=== PATIENT | female | born 1940 | race Caucasian/White ===

== ENCOUNTER 2016-05-30 08:16 | Emergency (ER) | payer MEDICARE ==
[2016-05-30] MEDS ORDERED: methylPREDNISolone SOD SUCC* 125 MG 2 ML VIAL IV ONE (08:43)
[2016-05-30] MEDS ORDERED: NS 0.9% 1000 ML* 1,000 ML IV ONE (08:43)
[2016-05-30] MEDS ORDERED: Famotidine IV* 10 MG/ML 2 ML (20 mg) IV SLOW PU ONE (08:43)
[2016-05-30 12:07] VITALS: BP 116/60
[2016-05-30 12:12] LABS: Hematocrit 37 % (35-47); Hemoglobin 12.4 g/dl (12.0-16.0); Mean Corpuscular HGB Conc 34 g/dl (31-36); Mean Corpuscular Hemoglobin 31 pg (27-31); Mean Corpuscular Volume 91 fL (80-97); Mean Platelet Volume 9 um3 (7.4-10.4); Red Blood Count 4.06 10^6/ul (4.0-5.4); Red Cell Distribution Width 14 % (10.5-15); White Blood Count 8.4 10^3/ul (3.5-10.8)
[2016-05-30 12:23] LABS: Albumin 4.1 g/dL (3.2-5.2); BUN/Creatinine Ratio 22.8 (8-20); C Reactive Protein 7.32 mg/L (< 5.00); Calcium 8.9 mg/dL (8.6-10.3); EGFR African American 91.5 (>60); EGFR Non-African American 71.1 (>60); Globulin 3.2 g/dL (2-4); Potassium 3.8 mmol/L (3.5-5.0); Total Protein 7.3 g/dL (6.4-8.9)
--- NOTE | 2016-05-31 01:46 | CONS ---
CONSULTATION REPORT: DATE OF CONSULT: 05/30/16 - EMERGENCY DEPT REQUESTING PHYSICIAN FOR CONSULTATION: Jose Tenorio MD ATTENDING PHYSICIAN WHILE IN THE HOSPITAL: Renata Mcclure MD (report dictated by Julius Acuna NP). CHIEF COMPLAINT: Red hands and red face rash. HISTORY OF PRESENT ILLNESS: Ms. Mota is a 76-year-old female patient who carries a history of dementia, asthma, hyperlipidemia, MRSA, history of CHF related to atrial fibrillation with RVR, and a history of AFib. She comes into the ER today, stating that the patient remembers getting up, going to get her medications, and was noted by [facility] staff that she had redness to her face and she had redness to both of her extremities. The patient denied having any difficulty with breathing. There was no reports of wheeze. They were concerned for an allergic reaction and they sent the patient to the hospital. The daughter said that she has had in the past reactions like this, but she never had redness to her face. She has had redness to both her hands and her forearms at times that come and go, and it usually goes away on its own in a couple of days. To their knowledge, there has been no recent change in medications, no changes in detergents. The patient does state that she has no sores in her mouth. She denies having any itching. There has been no blistering and there is no other location of the rashes that she is aware of. The patient states that she was concerned and [facility] was concerned, so they sent her into the hospital to be evaluated. She denies having any fever. There has been no recent illness. No associated vomiting or diarrhea. There has been no dysuria. No loss of consciousness. No frequency. No seizures. Otherwise, the patient feels well. The daughter did note, though, on their way over here, the patient was confused more than her baseline and that was concerning to the daughter as well. She was evaluated by Dr. Tenorio. There was concern for possible reaction and we were asked to evaluate in consult. PAST MEDICAL HISTORY: Significant for: 1. Dementia. 2. Hypertension. 3. Hyperlipidemia. 4. Asthma. 5. MRSA. 6. AFib. 7. CHF. PAST SURGICAL HISTORY: She has had: 1. Hysterectomy. 2. Appendectomy. HOME MEDICATIONS: Include: 1. Pepto-Bismol 30 cc p.o. q.i.d. as needed. 2. Tessalon 100 mg p.o. t.i.d. as needed. 3. ProAir 2 puffs inhaled every 4 hours as needed. 4. Ventolin 2.5 mg inhaled every 4 hours. 5. Warfarin 2 mg p.o. daily. 6. Imodium 2 mg daily. 7. Lipitor 40 mg p.o. at bedtime. 8. Omeprazole 20 mg p.o. daily. 9. Toprol 12.5 mg p.o. daily. 10. Cozaar 25 mg daily. 11. Potassium 40 mEq p.o. daily. 12. Lasix 20 mg daily. 13. Zyrtec 10 mg daily. 14. Multivitamin 1 tablet daily. 15. Amiodarone 100 mg p.o. daily. 16. Probiotic 4 mg daily. ALLERGIES TO MEDICATIONS: Include no known drug allergies. FAMILY HISTORY: Mother's history was reviewed and noncontributory. Father had a history of [place]. SOCIAL HISTORY: She is a former smoker. She smoked a pack a day. She quit over 30 years ago. She used to be an alcoholic, but she has not drank in several years. She lives at [facility]. Surrogate decision maker is Alfa. REVIEW OF SYSTEMS: There is no documented fever. She denies having any significant weight change. There was no double vision. There was no ear discharge. She denied having any rhinorrhea. No sore throat. No thyroid enlargement. Denied having any chest pain. There was no orthopnea, no nocturnal dyspnea. There is no abdominal pain. No nausea, no vomiting. No dysuria, no frequency. No loss of consciousness. No pruritus and no skin ulcerations. Review of 14 systems completed, all others negative. PHYSICAL EXAM: Reveals vital signs, blood pressure 116/60 with a pulse of 59, respirations 16, O2 sat of 100%, temperature 98.7. General: At this time, Ms. Mota is a 76-year-old female patient. She is sitting in the ER stretcher. She does not appear to be in any acute distress. HEENT: Head atraumatic. Eyes : Sclerae anicteric, not pale. Neck: Supple. Throat: Oral mucosa appears to be dry. No oropharyngeal erythema. There were no open sores in the mouth. Heart: Sounds S1 and S2. Regular rate and rhythm. No murmurs, rubs, or gallops. Lungs: Clear to auscultation. No wheezes, rales, or rhonchi. No stridor. Abdomen: Soft, flat, nontender. Bowel sounds present. Extremities: Pulses 2+ throughout, she is able to move all 4 extremities with 5/5 strength. Neurologically, the patient is awake and is alert. She is oriented to self, confused to time. No gross focal deficits. The skin is intact. DIAGNOSTIC DATA: Labs today revealed WBC of 8.4, RBC 4.06, hemoglobin 12.4, hematocrit 37, platelet count 206. Sodium 139, potassium of 3.8, chloride of 107, bicarb 25, BUN 18, creatinine 0.79, glucose 139, lactic 1.1, calcium 8.9, total bili of 1, AST 24, ALT 18, alk phos 101. Troponin is 0. CRP is 7.32, albumin of 4.1. Old medical records were reviewed. ASSESSMENT AND PLAN: Ms. Mota is a 76-year-old female patient coming into the ER today with complaints of rash to her upper extremities, in addition to this, to her face. We were asked to evaluate and consult. Recommendations at this point are: 1. Rash. Again, she is not having any itching. There is no blistering. The rash is blanchable and she has no involvement of the mucosa and no involvement of her eyes, and there has been no recent medications and again there is no sloughing of the skin. She had no respiratory symptoms. I did discuss with the patient and her family the options would be to admit her and observe her overnight here in the hospital or possibly send her home, and the family was reluctant to keep her in the hospital because the last time she was here, she had significant changes in her mentation and she required a long hospitalization , so the family was reluctant to admit her. I did discuss the option of sending her back to [facility], where she could be observed there and I would also recommend putting her on a burst of steroids just for another 3 days, putting her on Pepcid and p.r.n. Benadryl and having her follow with her primary. She said she has had this issue before, but the rash to her face is new and I instructed the family should she have any worsening of her symptoms, chest pain, shortness of breath, cough, difficulty with breathing, she should come back to the ER immediately. I discussed with my attending, Dr. Mcclure, and Dr. Tenorio; they are in agreement. They will send her home with outpatient trial. If she fails this, then she should come back immediately for further evaluation. 2. Dementia. Again, continue with supportive care. 3. Hypertension. Continue meds as prescribed. 4. Hyperlipidemia. Continue meds as prescribed. 5. History of AFib. Continue her current medical regimen. 6. Congestive heart failure. Continue her meds. 7. Asthma. Continue p.r.n. ProAir. 8. Disposition. Again, the patient will be discharged back to [facility]. TIME SPENT: On the consult was approximately 60 minutes; greater than half the time was spent [id number] with the patient obtaining my history and physical, the other half the time spent going over the plan of care with the patient and implementing the plan of care. I did discuss the plan of care with my attending , Dr. Mcclure. She is in agreement. JULIUS ACUNA NP CC: Millie Martinez NP* [id number]/[facility] [place] #: [id number] MTDD
--- NOTE | 2016-05-31 21:09 | ED ---
Holger Mckenzie Adam, scribed for Tae Tenorio MD on 05/30/16 at 0847 . Allergic Reaction/Systemic - HPI Summary HPI Summary: Pt is a 76 year old female presenting with an apparent allergic reaction. She states that she woke up in the middle of the night with swelling of her hands and face. There is redness around the swollen areas and she reports mild itchiness around the time of onset. She also states that she was having some difficulty breathing earlier this morning. She denies difficulty swallowing. Pt denies taking any medicine for the swelling but states that EMS gave her something. Pt's daughter states that the pt is presenting with significantly altered mental status compared to her baseline. - History of Current Complaint Time Seen by Provider: 05/30/16 08:21 Hx Obtained From: Patient Onset/Duration: Sudden Onset, Started hours ago, Still Present Timing: Constant Severity Initially: Moderate Severity Currently: Mild Location: Discrete @ - Hands and face Character: Swelling, Pruritus Aggravating Factor(s): Nothing Alleviating Factor(s): Nothing Associated Signs And Symptoms: Positive: Difficulty Breathing - Allergies/Home Medications Allergies/Adverse Reactions: Allergies Allergy/AdvReac Type Severity Reaction Status Date / Time No Known Allergies Allergy Verified 01/12/15 12:46 Home Medications: Home Medications Amiodarone TAB* [Cordarone TAB*] 100 mg PO DAILY 05/30/16 [History Confirmed 12/06] Atorvastatin* [Lipitor*] 40 mg PO BEDTIME 05/30/16 [History Confirmed 05/30/16] Furosemide TAB* [Lasix TAB*] 20 mg PO DAILY 05/30/16 [History Confirmed 05/30/16 ] Loperamide CAP* [Imodium CAP*] 2 mg PO Q4H PRN 05/30/16 [History Confirmed 05/30] Losartan TAB* [Cozaar TAB*] 25 mg PO DAILY 05/30/16 [History Confirmed 05/30/16] Metoprolol Succinate XL TAB* [Toprol XL TAB*] 12.5 mg PO DAILY 05/30/16 [ History Confirmed 05/30/16] Multivitamins/Minerals TAB* [Theragran/minerals TAB*] 1 tab PO DAILY 05/30/16 [ History Confirmed 05/30/16] Omeprazole CAP* [Prilosec CAP* 20 MG] 20 mg PO DAILY 05/30/16 [History Confirmed 05/30/16] Potassium Chloride Microencaps [Klor-Con M20] 40 meq PO DAILY 05/30/16 [History Confirmed 05/30/16] Probiotic Product [Align] 4 mg PO DAILY 05/30/16 [History Confirmed 05/30/16] Warfarin TAB(*) [Coumadin TAB(*)] 2 mg PO QPM 05/30/16 [History Confirmed ] PMH/Surg Hx/FS Hx/Imm Hx Endocrine/Hematology History: Denies: Hx Diabetes, Hx Thyroid Disease Cardiovascular History: Reports: Hx Hypertension Denies: Hx Congestive Heart Failure Respiratory History: Denies: Hx Asthma, Hx Chronic Obstructive Pulmonary Disease (COPD) GI History: Denies: Hx Ulcer History: Denies: Hx Dialysis, Hx Renal Disease Sensory History: Reports: Hx Contacts or Glasses Opthamlomology History: Reports: Hx Contacts or Glasses Neurological History: Reports: Hx Dementia, Other Neuro Impairments/Disorders - Alzheimer's - Cancer History Hx Chemotherapy: No Hx Radiation Therapy: No - Surgical History Surgery Procedure, Year, and Place: appy, hysterectomy Infectious Disease History: Denies: Hx Hepatitis, Hx Human Immunodeficiency Virus (HIV) - Family History Known Family History: Positive: Other - Negative breast cancer - Social History Occupation: Retired Lives: Alone Alcohol Use: None Hx Substance Use: No Substance Use Type: Reports: None Hx Tobacco Use: Yes Smoking Status (MU): Former Smoker Review of Systems Negative: Fever Positive: Edema - Hands and face Positive: Other - Redness on hands and face All Other Systems Reviewed And Are Negative: Yes Physical Exam Triage Information Reviewed: Yes Vital Signs On Initial Exam: Initial Vitals Temp Pulse Resp BP Pulse Ox 98.7 F 55 18 121/70 97 05/30/16 09:00 05/30/16 09:00 05/30/16 09:00 05/30/16 09:00 05/30/16 09:00 Vital Signs Reviewed: Yes Appearance: Positive: Well-Appearing, No Pain Distress Skin: Positive: Other - Swelling and erythema of hands and face Head/Face: Positive: Other - Facial swelling and redness Eyes: Positive: Normal ENT: Positive: Normal ENT inspection Neck: Positive: Supple, Nontender Respiratory/Lung Sounds: Positive: Clear to Auscultation, Breath Sounds Present Cardiovascular: Positive: RRR Abdomen Description: Positive: Nontender, Soft Bowel Sounds: Positive: Present Musculoskeletal: Positive: Normal Neurological: Positive: Normal Psychiatric: Positive: Affect/Mood Appropriate Diagnostics - Vital Signs Vital Signs Temp Pulse Resp BP Pulse Ox 05/30/16 12:07 59 16 116/60 100 05/30/16 09:47 54 18 125/52 95 05/30/16 09:28 98.7 F 55 18 121/70 97 05/30/16 09:00 98.7 F 55 18 121/70 97 - Laboratory Lab Results: Lab Results 05/30/16 05/30/16 05/30/16 Range/Units 11:55 11:55 11:55 WBC 8.4 (3.5-10.8) 10^3/ul RBC 4.06 (4.0-5.4) 10^6/ul Hgb 12.4 (12.0-16.0) g/dl Hct 37 (35-47) % MCV 91 (80-97) fL MCH 31 (27-31) pg MCHC 34 (31-36) g/dl RDW 14 (10.5-15) % Plt Count 206 (150-450) 10^3/ul MPV 9 (7.4-10.4) um3 Neut % (Auto) 92.7 H (38-83) % Lymph % (Auto) 5.4 L (25-47) % [place] % (Auto) 1.2 (1-9) % Eos % (Auto) 0.3 (0-6) % Baso % (Auto) 0.4 (0-2) % Absolute Neuts (auto) 7.8 H (1.5-7.7) 10^3/ul Absolute Lymphs (auto) 0.5 L (1.0-4.8) 10^3/ul Absolute Monos (auto) 0.1 (0-0.8) 10^3/ul Absolute Eos (auto) 0 (0-0.6) 10^3/ul Absolute Basos (auto) 0 (0-0.2) 10^3/ul Absolute Nucleated RBC 0 10^3/ul Nucleated RBC % 0 Sodium 139 (133-145) mmol/L Potassium 3.8 (3.5-5.0) mmol/L Chloride 107 (101-111) mmol/L Carbon Dioxide 25 (22-32) mmol/L Anion Gap 7 (2-11) mmol/L BUN 18 (6-24) mg/dL Creatinine 0.79 (0.51-0.95) mg/dL Est GFR ( Amer) 91.5 (>60) Est GFR (Non-Af Amer) 71.1 (>60) BUN/Creatinine Ratio 22.8 H (8-20) Glucose 139 H (70-100) mg/dL Lactic Acid 1.1 (0.5-2.0) mmol/L Calcium 8.9 (8.6-10.3) mg/dL Total Bilirubin 1.00 (0.2-1.0) mg/dL AST 24 (13-39) U/L ALT 18 (7-52) U/L Alkaline Phosphatase 101 (34-104) U/L Troponin I 0.00 (<0.04) ng/mL C-Reactive Protein 7.32 H (< 5.00) mg/L Total Protein 7.3 (6.4-8.9) g/dL Albumin 4.1 (3.2-5.2) g/dL Globulin 3.2 (2-4) g/dL Albumin/Globulin Ratio 1.3 (1-3) Result Diagrams: 05/30/16 11:55 05/30/16 11:55 Lab Statement: Any lab studies that have been ordered have been reviewed, and results considered in the medical decision making process. Allergic Reaction Course/Dx - Course Course Of Treatment: Ms. Mota has an unusual reaction that looks allergic in nature and did improve with antihistamines. Her daughter felt that her mental status was significantly decreased from her baseline and therefore medicine was consulted. They were willing to admit her but her daughter then felt that she would likely decompensate in the hospital as has happened in the past. - Diagnoses Provider Diagnoses: Allergic reaction - Provider Notifications Patient Care Discussed With: Dr. Trujillo (hospitalist) at 12:43. Discharge - Discharge Plan Condition: Stable Disposition: HOME Prescriptions: predniSONE TAB* [Deltasone TAB*] 40 mg PO DAILY #6 tab Patient Education Materials: General Allergic Reaction (ED) Referrals: Millie Martinez NP [Primary Care Provider] - The documentation as recorded by the Holger thompson Adam accurately reflects the service I personally performed and the decisions made by me, Tae Tenorio MD.
== END 2016-05-30 14:10 | disposition home or self-care (01) ==
LOC: ED 08:16 → MED 12:43 → UNDOADMOB 12:43
DX: T78.40XA Allergy, unspecified, initial encounter (principal); R60.0 Localized edema; X58.XXXA Exposure to other specified factors, initial encounter
CPT/HCPCS: 36415; 80053; 83605; 84484; 85025; 86140; 96361; 96365; 99283

== ENCOUNTER 2017-04-27 11:45 | Emergency (ER) | payer MEDICARE ==
[2017-04-27 12:35] LABS: ABS Basophils 0.1 10^3/ul (0-0.2); ABS Eosinophils 0.2 10^3/ul (0-0.6); ABS Lymphocytes 0.7 10^3/ul (1.0-4.8); ABS Monocytes 0.6 10^3/ul (0-0.8); ABS Neutrophils 4.2 10^3/ul (1.5-7.7); Hematocrit 35 % (35-47); Hemoglobin 11.8 g/dl (12.0-16.0); Mean Corpuscular HGB Conc 34 g/dl (31-36); Mean Corpuscular Hemoglobin 31 pg (27-31); Mean Corpuscular Volume 91 fL (80-97); Mean Platelet Volume 8 um3 (7.4-10.4); Platelet Count 207 10^3/ul (150-450); Red Blood Count 3.84 10^6/ul (4.0-5.4); Red Cell Distribution Width 15 % (10.5-15); White Blood Count 5.7 10^3/ul (3.5-10.8)
[2017-04-27 12:36] LABS: ABS Nucleated RBC 0 10^3/ul; Eosinophil % 2.7 % (0-6); Lymphocyte % 12.1 % (25-47); Nucleated Red Blood Cells % 0
--- NOTE | 2017-04-27 12:47 | RAD ---
HISTORY: Altered mental status, dementia COMPARISONS: None TECHNIQUE: Multiple contiguous axial CT scans were obtained of the head without intravenous contrast. FINDINGS: HEMORRHAGE/INFARCT: There is no hemorrhage or acute infarct. MASSES/SHIFT: There is no mass or shift. EXTRA-AXIAL SPACES: There are no extra-axial fluid collections. SULCI AND VENTRICLES: There is diffuse and proportional enlargement of the sulci and ventricles. CEREBRUM: There are no focal parenchymal abnormalities. BRAINSTEM: There are no focal parenchymal abnormalities. CEREBELLUM: There are no focal parenchymal abnormalities. VESSELS: The vessels are grossly normal. PARANASAL SINUSES: The paranasal sinuses are clear. ORBITS: The orbits are unremarkable. BONES AND SOFT TISSUE: No bone or soft tissue abnormalities are noted. OTHER: None IMPRESSION: NO ACUTE INTRACRANIAL PATHOLOGY.
[2017-04-27 12:56] LABS: EGFR Non-African American 57.3 (>60)
--- NOTE | 2017-04-27 13:43 | RAD ---
Indication: Confusion. Single frontal view of the chest performed at 1255 hours was reviewed. No prior study is available for comparison. No mediastinal shift is noted. Heart is magnified in the AP nature of the film. No pleural fluid, pneumonia or pneumothorax is noted. IMPRESSION: NO ACTIVE CARDIOPULMONARY DISEASE IS NOTED.
[2017-04-27 14:45] LABS: Urine Appearance Clear; Urine Blood Negative (Negative); Urine Color Straw; Urine Ketones Negative (Negative); Urine Protein Negative (Negative); Urine Specific Gravity 1.005 (1.010-1.030); Urine Urobilinogen Negative (Negative)
[2017-04-27 17:07] VITALS: BP 114/78
--- NOTE | 2017-04-27 23:13 | CONS ---
CONSULTATION REPORT: DATE OF CONSULT: 04/27/17 - EMERGENCY DEPT PROVIDER: Martha Reese NP. EMERGENCY DEPARTMENT REQUESTING PHYSICIAN: Dr. Peoples. ATTENDING PHYSICIAN WHILE IN THE HOSPITAL: Peggy Cueva DO (report dictated by Martha Reese NP). CHIEF COMPLAINT: Confusion/irregular heart rate. HISTORY OF PRESENT ILLNESS: Ms. Mota is a 76-year-old female patient who carries a history of dementia, asthma, hyperlipidemia, MRSA, history of CHF related to atrial fibrillation with RVR and history of AFib. She comes to the emergency room today after staff at [facility] stated that she was not acting herself and had increased confusion. The patient currently denies having any difficulty breathing. She denies any chest pain or abdominal pain. Denies any nausea or vomiting. The son is present in the room during this evaluation. He reports that the patient sometimes gets anxious and nervous and at that time she gets more confused. He also reports that she has a longstanding history of atrial fibrillation for which she is on Coumadin anticoagulation. At this time , Ms. Mota has no immediate complaints. Her son states that the patient is currently at her baseline. She has been able to ambulate in the ER without difficulty to the bathroom several times. We were asked by the emergency room physicians to consult due to her increased confusion and atrial fibrillation. PAST MEDICAL HISTORY: Significant for: 1. Dementia. 2. Hypertension. 3. Hyperlipidemia. 4. Asthma. 5. MRSA. 6. AFib. 7. CHF. PAST SURGICAL HISTORY: 1. Hysterectomy. 2. Appendectomy. CURRENT MEDICATIONS: 1. Albuterol 2 puffs q. 4 hours p.r.n. 2. Albuterol nebulizer 2.5 mg p.o. q. 4 hours p.r.n. 3. 25 mg p.o. q. 6 hours p.r.n. 4. Tessalon Perles 100 mg p.o. t.i.d. p.r.n. cough. 5. Acetaminophen 500 mg p.o. q.i.d. p.r.n. pain or fever. 6. Imodium 2 mg p.o. daily p.r.n. 7. Coumadin 1 mg Monday, Monday, and Monday. 8. Coumadin 2 mg Monday, Monday, , Monday. 9. Atorvastatin 40 mg p.o. at bedtime. 10. Sertraline 25 mg p.o. daily. 11. Omeprazole 20 mg p.o. daily. 12. Metoprolol 12.5 mg p.o. daily. 13. Potassium chloride 40 mEq p.o. daily. 14. Cozaar 25 mg p.o. daily. 15. Furosemide 20 mg p.o. daily. 16. Zyrtec 10 mg p.o. daily. 17. Multivitamin 1 p.o. daily. 18. Cordarone 100 mg p.o. daily. 19. Align 4 mg p.o. daily. ALLERGIES: No known drug allergies. FAMILY HISTORY: Mother's history was reviewed and noncontributory. Father had a history of an [place]. SOCIAL HISTORY: She is a former smoker. She used to smoke a pack a day for over 30 years. She used to be an alcoholic but has not drank in several years. She currently lives at [facility]. Her surrogate decision maker in the event she is unable to make her own decisions is her son, Alfa Mota, his phone number is [phone]. REVIEW OF SYSTEMS: General: There is no fever, chills, or unintended weight loss. Cardiac: There is no chest pain, no edema. Respiratory: There is no cough, congestion or shortness of breath. GI: There is no nausea, vomiting or diarrhea or abdominal pain. : She denies any hematuria or dysuria. Neurologic: There is no focal weakness or sensory loss. Eyes: No visual complaints. ENT: No dysphagia. Musculoskeletal: No arthralgias or myalgias. Skin: No rashes or lesions. Psych: No depression. Son does report anxiety at times and reports that she was recently started on Zoloft in the beginning of March. PHYSICAL EXAM: Vital Signs: Temperature was 99.1, heart rate was 88, respirations were 16, O2 saturation was 95 % on room air, blood pressure 126/91. DIAGNOSTIC STUDIES/LAB DATA: WBCs were 5.7, RBCs 3.84, hemoglobin 11.8, hematocrit was 35, platelet count was 207. Sodium 139, potassium 4.3, chloride 107, carbon dioxide 27, anion gap of 5, BUN was 18, creatinine 0.95, lactic acid was 1.0, glucose was 96, calcium 9.3, magnesium 2.2, troponin was 0.00. TSH was 2.73. Urine was clear, pH was 6, specific gravity was 1.005. Urine protein, ketones, blood, nitrates, bilirubin and urobilinogen were negative. Urine leukocyte esterase was trace. Urine wbc's were trace. Urine rbc's were absent. Urine squamous epithelial cells were present. Urine bacteria was negative and glucose was also negative. Urine tox was also completely negative. Electrocardiogram showed atrial fibrillation, rate of 86. CT of the head: No acute intracranial pathology. There is no hemorrhage or acute infarct. Chest x-ray: Radiologist impression: No active cardiopulmonary disease. IMPRESSION AND PLAN: Ms. Mota is a 77-year-old female with past medical history significant for dementia, atrial fibrillation, hypertension, hyperlipidemia, asthma and congestive heart failure who presented to the emergency room from [facility] with increased confusion and irregular heart rate. Per the son, the patient appears to be at her baseline at this time. She is not in any respiratory distress. Her respirations are easy and even. Our recommendations are as follows: 1. Confusion: The patient has history of dementia and Alzheimer's disease. She is currently at her baseline per her son who is present in the room. She does not appear to be in any acute distress. He does report that she recently was started on Sertraline to help control her anxiety and he states that when her anxiety increases that she does get more forgetful and has increased confusion. 2. Atrial fibrillation: At this time, her atrial fibrillation is at a controlled rate of 86. She does not appear to be in any acute distress. Her chest x-ray was clear. There was no vascular congestion noted on the chest x- ray. She does have a followup appointment scheduled with her laborer gold leaf tomorrow and there are no signs of fluid overload at this time. At this time, I feel that Ms. Mota is stable for discharge back home. She has no complaints. She appears to be at her baseline. I have discussed this with her son, Chandan and he is in agreement with this plan. He does report that she becomes more confused when she is out of her routine and it makes it more difficult for her and he would like her to return back to [facility]. This was discussed with Dr. Peoples in the emergency room and he is in agreement and we will discharge the patient back to [facility]. TIME SPENT: Time spent was approximately 45 minutes on this consultation; more than half the time was spent with the patient at the bedside reviewing the events leading thus far to her emergency room visit, performing physical exam, and reviewing my plan of care. I discussed my plan of care with my attending Dr. Peggy Cueva, and she is in agreement with my plan. MARTHA REESE, INVENTORY CONTROL SUPERVISOR [id number]/[facility] #: [id number] SARWAT
--- NOTE | 2017-04-28 08:39 | ED ---
Renato Mckenzie Angela, scribed for Adal Peoples MD on 04/27/17 at 1154 . Neurological HPI - HPI Summary HPI Summary: This pt is a 77 y/o female presenting to [facility] via EMS from [facility] for increased confusion and irregular heart beat. EMS reports the pt has hx of Alzheimer's disease and [facility] staff have noticed pt has had increased confusion lately. Staff states the pt has been staring off into space and this morning pt only had 1 sock on and couldn't figure out how to put the other one on. Per EMS, pt keeps asking for her parents. EMS notes the pt has an irregular heart beat consistent with atrial fibrillation but report pt has no hx of atrial fibrillation. Pt currently denies any pain. PMHx includes CAD and Alzheimer's disease. HPI IS LIMITED DUE TO LEVEL 5 CAVEAT - pt has Alzheimer's disease. - History of Current Complaint Stated Complaint: CARDIAC ISSUE Hx Obtained From: Patient, EMS Hx From Patient Unobtainable Due To: Other - Level 5 caveat - pt has Alzheimer' s. Onset/Duration: Still Present Timing: Constant Current Severity: Moderate Character: Confusion Aggravating: Nothing Alleviating: Nothing Associated Signs and Symptoms: Positive: Confusion. Negative: Pain, Chest Pain - Additional Pertinent History Primary Care Physician: [id number] - Allergy/Home Medications Allergies/Adverse Reactions: Allergies Allergy/AdvReac Type Severity Reaction Status Date / Time No Known Allergies Allergy Verified 01/12/15 12:46 Home Medications: Home Medications Acetaminophen [Acetaminophen Extra Strength] 500 mg PO QID PRN 04/27/17 [ History Confirmed 04/27/17] Amiodarone TAB* [Cordarone TAB*] 100 mg PO DAILY 04/27/17 [History Confirmed 10/07] Multivit with Minerals/Lutein [A Thru Z Advanced Formula Tab] 1 tab PO DAILY 10/07 [History Confirmed 04/27/17] Potassium Chloride [Klor-Con M20] 40 meq PO DAILY 04/27/17 [History Confirmed ] Sertraline* [Zoloft*] 25 mg PO DAILY 04/27/17 [History Confirmed 04/27/17] Warfarin TAB(*) [Coumadin TAB(*)] 1 mg PO MOWEFR 04/27/17 [History Confirmed 10/07] Warfarin TAB(*) [Coumadin TAB(*)] 2 mg PO SUTUTHSA 04/27/17 [History Confirmed 04/27/17] diphenhydrAMINE HCl [Diphenhist] 25 mg PO Q6HR PRN 04/27/17 [History Confirmed 04/27/17] PMH/Surg Hx/FS Hx/Imm Hx Endocrine/Hematology History: Denies: Hx Diabetes, Hx Thyroid Disease Cardiovascular History: Reports: Hx Hypertension Denies: Hx Atrial Fibrillation, Hx Congestive Heart Failure Respiratory History: Denies: Hx Asthma, Hx Chronic Obstructive Pulmonary Disease (COPD) GI History: Denies: Hx Ulcer History: Denies: Hx Dialysis, Hx Renal Disease Sensory History: Reports: Hx Contacts or Glasses Opthamlomology History: Reports: Hx Contacts or Glasses Neurological History: Reports: Hx Dementia, Other Neuro Impairments/Disorders - Alzheimer's - Cancer History Hx Chemotherapy: No Hx Radiation Therapy: No - Surgical History Surgery Procedure, Year, and Place: appy, hysterectomy Infectious Disease History: Denies: Hx Hepatitis, Hx Human Immunodeficiency Virus (HIV) - Family History Known Family History: Positive: Unknown - due to level 5 caveat - pt has Alzheimer's - Social History Alcohol Use: None Substance Use Type: Reports: None Smoking Status (MU): Former Smoker Review of Systems - ROS Summary Review of Systems Summary: ROS IS LIMITED DUE TO LEVEL 5 CAVEAT - pt has Alzheimer's. Negative: Fever, Chills Cardiovascular: Other - irregular heart beat Negative: Other - pain Neurological: Other - POS: confusion All Other Systems Reviewed And Are Negative: No Physical Exam - Summary Physical Exam Summary: VITAL SIGNS: Reviewed. GENERAL: Patient is a well-developed and nourished female who is lying comfortable in the stretcher. Patient is not in any acute respiratory distress. HEAD AND FACE: No signs of trauma. No ecchymosis, hematomas or skull depressions. No sinus tenderness. EYES: PERRLA, EOMI x 2, No injected conjunctiva, no nystagmus. No photophobia. EARS: Hearing grossly intact. Ear canals and tympanic membranes are within normal limits. MOUTH: Oropharynx within normal limits. NECK: Supple, trachea is midline, no adenopathy, no JVD, no carotid bruit, no c- spine tenderness, neck with full ROM. No meningeal signs, no Kernig's or brudzinskis signs. CHEST: Symmetric, no tenderness at palpation LUNGS: Clear to auscultation bilaterally. No wheezing or crackles. CVS: Regular rate and rhythm, S1 and S2 present, no murmurs or gallops appreciated. ABDOMEN: Soft, non-tender. No signs of distention. No rebound no guarding, and no masses palpated. Bowel sounds are normal. EXTREMITIES: FROM in all major joints, no edema, no cyanosis or clubbing. NEURO: Alert but not oriented. No acute neurological deficits. Speech is normal and follows commands. SKIN: Dry and warm Triage Information Reviewed: Yes Vital Signs Reviewed: Yes - Milagro Coma Scale Best Eye Response: 4 - Spontaneous Best Motor Response: 6 - Obeys Commands Best Verbal Response: 5 - Oriented Coma Scale Total: 15 Diagnostics - Laboratory Result Diagrams: 04/27/17 12:24 04/27/17 12:24 Lab Statement: Any lab studies that have been ordered have been reviewed, and results considered in the medical decision making process. - Radiology Chest XR Xray Interpretation: No Acute Changes - IMPRESSION: No active cardiopulmonary disease is noted. Dr. Peoples has reviewed this radiology report. Radiology Interpretation Completed By: Radiologist - CT Brain CT CT Interpretation: No Acute Changes - IMPRESSION: No acute intracranial pathology. Dr. Peoples has reviewed this radiology report. CT Interpretation Completed By: Radiologist - EKG 12:14 Cardiac Rate: NL EKG Rhythm: Atrial Fibrillation - at 86 bpm EKG Interpretation: No STEMI. Course/Dx - Course Assessment/Plan: This pt is a 77 y/o female presenting to [facility] via EMS from [facility] for increased confusion and irregular heart beat. EMS reports the pt has hx of Alzheimer's disease and [facility] staff have noticed pt has had increased confusion lately. Staff states the pt has been staring off into space and this morning pt only had 1 sock on and couldn't figure out how to put the other one on. Per EMS, pt keeps asking for her parents. EMS notes the pt has an irregular heart beat consistent with atrial fibrillation but report pt has no hx of atrial fibrillation. Pt currently denies any pain. PMHx includes CAD and Alzheimer's disease. HPI IS LIMITED DUE TO LEVEL 5 CAVEAT - pt has Alzheimer's disease. Test results without any significant abnormalities. Urinalysis is negative for UTI. EKG shows a new onset of atrial fibrillation with rate control. Pts past medical history is limited due to Alzheimers disease. Therefore I discussed the case with Dr. Cueva, hospitalist, who accepted the pt for admission. It was difficult to get a good history from the pt due to Alzheimers therefore after the hospitalist discussed with the pts son, it was determined that the pt has a long history of atrial fibrillation. Therefore, pt will be discharged to home with follow up from her PCP. Pt is hemodynamically stable, alert and oriented x1, at her baseline. - Diagnoses Provider Diagnoses: Chronic atrial fibrillation, Confusion - Physician Notifications Discussed Care Of Patient With: Peggy Cueva Time Discussed With Above Provider: 13:53 Instructed by Provider To: Other - I discussed pt care with Dr. Cueva, hospitalist, who has agreed to admit the pt. Discharge - Discharge Plan Condition: Stable Disposition: HOME Patient Education Materials: A-fib (Atrial Fibrillation) (ED) Referrals: Millie Martinez NP [Primary Care Provider] - 3 Days Additional Instructions: Please follow up with your primary care provider. RETURN TO THE ED FOR ANY WORSENING SYMPTOMS. The documentation as recorded by the Renato thompson Angela accurately reflects the service I personally performed and the decisions made by me, Adal Peoples MD.
== END 2017-04-27 17:05 | disposition home or self-care (01) ==
LOC: ED 11:45
DX: I48.2 Chronic atrial fibrillation (principal); Z79.01 Long term (current) use of anticoagulants; Z87.891 Personal history of nicotine dependence; R41.0 Disorientation, unspecified; I10 Essential (primary) hypertension; E78.5 Hyperlipidemia, unspecified; J45.909 Unspecified asthma, uncomplicated; Z86.14 Personal history of Methicillin resistant Staphylococcus aureus infection
CPT/HCPCS: 36415; 70450; 71045; 80053; 80307; 81003; 81015; 82550; 83605; 83735; 84443; 84484; 85025; 87086; 93005; 99282

== ENCOUNTER 2017-05-02 07:32 | Emergency (ER) | payer MEDICARE ==
--- NOTE | 2017-05-02 09:30 | RAD ---
INDICATION: Right hip pain COMPARISON: None TECHNIQUE: An AP view of the pelvis and AP views of the hip in neutral and abducted position were obtained FINDINGS: Bones: There are no acute bony findings. Joint spaces: The hips articulate normally. The joint spaces are preserved. SI joints/symphysis: The SI joints and symphysis are intact. Other: None IMPRESSION: NO ACUTE FRACTURE.
--- NOTE | 2017-05-02 09:34 | RAD ---
INDICATION: Right knee pain. Fall. COMPARISON: None TECHNIQUE: AP, lateral , tunnel, and sunrise views were obtained. The lateral view was repeated. Both lateral views are limited. FINDINGS: No acute fracture is seen. The knee articular is normally. There is no definite effusion. IMPRESSION: NO ACUTE BONY FINDINGS ARE SEEN. THERE IS LIMITED EVALUATION OF THE PATELLA ON THE LATERAL VIEW. SUGGEST REPEAT LATERAL VIEW IF THERE IS CONCERN OF A PATELLAR INJURY.
--- NOTE | 2017-05-02 09:35 | RAD ---
INDICATION: Right wrist pain COMPARISON: None TECHNIQUE: AP, lateral, and oblique views were obtained. FINDINGS: There is diffuse soft tissue swelling about the wrist. No acute fracture is seen. The carpals articulate normally. The radiocarpal joint is intact. IMPRESSION: DIFFUSE SOFT TISSUE SWELLING. NO ACUTE FRACTURE.
--- NOTE | 2017-05-02 10:20 | RAD ---
INDICATION: Fall. Knee pain COMPARISON: Knee same date TECHNIQUE: A single crosstable lateral view of the knee in slight flexion is submitted . FINDINGS: The lateral image is of diagnostic quality and shows no evidence of a patellar fracture or joint effusion. IMPRESSION: NEGATIVE LATERAL VIEW OF THE KNEE.
[2017-05-02 11:11] VITALS: BP 118/77
[2017-05-02 11:17] LABS: INR 2.64 (0.77-1.02)
--- NOTE | 2017-05-03 08:21 | ED ---
Renato Mckenzie Angela, scribed for Adal Peoples MD on 05/02/17 at 0818 . Adult Trauma - HPI Summary HPI Summary: This pt is a 77 y/o female presenting to [facility] via EMS from [facility] for multiple unwitnessed falls overnight. [facility] staff sends the pt to the ED for bruising noted on right knee and right hand. Pt denies any pain currently. Pt is not able to provide hx if she had LOC or head strike. HPI IS LIMITED DUE TO LEVEL 5 CAVEAT - pt has dementia - History of Current Complaint Chief Complaint: EDGeneral Stated Complaint: FALL Time Seen by Provider: 05/02/17 07:46 Hx Obtained From: EMS Hx From Patient Unobtainable Due To: Dementia Mechanism of Injury: Fall Loss of Consciousness: unsure Onset/Duration: Started Hours Ago, Traumatic, Still Present Onset of Pain: Post Accident Current Severity: None Pain Intensity: 0 - per pt Pain Scale Used: 0-10 Numeric Location: Extremities - right knee and right hand Aggravating Factor(s): Nothing Alleviating Factor(s): Nothing - Additional Pertinent History Primary Care Physician: JULISA - Allergy/Home Medications Allergies/Adverse Reactions: Allergies Allergy/AdvReac Type Severity Reaction Status Date / Time No Known Allergies Allergy Verified 01/12/15 12:46 PMH/Surg Hx/FS Hx/Imm Hx Endocrine/Hematology History: Denies: Hx Diabetes, Hx Thyroid Disease Cardiovascular History: Reports: Hx Hypertension Denies: Hx Atrial Fibrillation, Hx Congestive Heart Failure Respiratory History: Denies: Hx Asthma, Hx Chronic Obstructive Pulmonary Disease (COPD) GI History: Denies: Hx Ulcer History: Denies: Hx Dialysis, Hx Renal Disease Sensory History: Reports: Hx Contacts or Glasses Opthamlomology History: Reports: Hx Contacts or Glasses Neurological History: Reports: Hx Dementia, Other Neuro Impairments/Disorders - Alzheimer's - Cancer History Hx Chemotherapy: No Hx Radiation Therapy: No - Surgical History Surgery Procedure, Year, and Place: appy, hysterectomy Infectious Disease History: No Infectious Disease History: Denies: Hx Hepatitis, Hx Human Immunodeficiency Virus (HIV), Traveled Outside the [place] in Last 30 Days - Family History Known Family History: Positive: Unknown - due to level 5 caveat - pt has Alzheimer's - Social History Alcohol Use: None Substance Use Type: Reports: None Smoking Status (MU): Former Smoker Review of Systems - ROS Summary Review of Systems Summary: ROS IS LIMITED DUE TO LEVEL 5 CAVEAT - pt has dementia Negative: Fever, Chills Positive: Bruising - on right hand and right knee All Other Systems Reviewed And Are Negative: No Physical Exam - Summary Physical Exam Summary: VITAL SIGNS: Reviewed. GENERAL: Patient is a well-developed and nourished female who is lying comfortable in the stretcher. Patient is not in any acute respiratory distress. HEAD AND FACE: No signs of trauma. No ecchymosis, hematomas or skull depressions. No sinus tenderness. EYES: PERRLA, EOMI x 2, No injected conjunctiva, no nystagmus. EARS: Hearing grossly intact. Ear canals and tympanic membranes are within normal limits. MOUTH: Oropharynx within normal limits. NECK: Supple, trachea is midline, no adenopathy, no JVD, no carotid bruit, no c- spine tenderness, neck with full ROM. CHEST: Symmetric, no tenderness at palpation LUNGS: Clear to auscultation bilaterally. No wheezing or crackles. CVS: Regular rate and rhythm, S1 and S2 present, no murmurs or gallops appreciated. ABDOMEN: Soft, non-tender. No signs of distention. No rebound no guarding, and no masses palpated. Bowel sounds are normal. EXTREMITIES: FROM in all major joints, no cyanosis or clubbing. There is bruising on the right hand and right knee. NEURO: Alert and oriented x 1. No acute neurological deficits. Speech is normal and follows commands. SKIN: Dry and warm Triage Information Reviewed: Yes Vital Signs On Initial Exam: Initial Vitals Temp Pulse Resp BP Pulse Ox 99.5 F 90 15 143/83 95 05/02/17 07:37 05/02/17 07:37 05/02/17 07:37 05/02/17 07:37 05/02/17 07:37 Vital Signs Reviewed: Yes Diagnostics - Vital Signs Vital Signs Temp Pulse Resp BP Pulse Ox 05/02/17 07:43 93 20 97 05/02/17 07:41 112/73 05/02/17 07:37 99.5 F 90 15 143/83 95 - Laboratory Lab Statement: Any lab studies that have been ordered have been reviewed, and results considered in the medical decision making process. - Radiology Right wrist XR Xray Interpretation: Positive (See Comments) - IMPRESSION: Diffuse soft tissue swelling. No acute fracture. Dr. Peoples has reviewed this radiology report. Radiology Interpretation Completed By: Radiologist Right hip and pelvis XR Xray Interpretation: No Acute Changes - IMPRESSION: No acute fracture. Dr. Peoples has reviewed this radiology report. Radiology Interpretation Completed By: Radiologist Right knee XR Xray Interpretation: No Acute Changes - IMPRESSION: No acute bony findings are seen. There is limited evaluation of the patella on the lateral view. Suggest repeat lateral view is there is concern of a patellar injury. Dr. Peoples has reviewed this radiology report. Radiology Interpretation Completed By: Radiologist Right knee lateral view XR Xray Interpretation: No Acute Changes - IMPRESSION: Negative lateral view of the knee. Dr. Peoples has reviewed this radiology report. Radiology Interpretation Completed By: Radiologist Re-Evaluation - Re-Evaluation First Eval Re-Evaluation Time: 10:55 Change: Improved Comment: Pt was ambulated with no difficulty. Adult Trauma Course/Dx - Course Assessment/Plan: This pt is a 77 y/o female [facility] from [facility] for multiple unwitnessed falls overnight. [facility] staff sends the pt to the ED for bruising noted on right knee and right hand. Pt denies any pain currently. Pt not able to provide hx if LOC or head strike. HPI IS LIMITED DUE TO LEVEL 5 CAVEAT - pt has dementia. Right wrist XR shows diffuse soft tissue swelling. No acute fracture. Right hip and pelvis XR: No acute fracture. Right knee XR: No acute bony findings are seen. There is limited evaluation of the patella on the lateral view. Suggest repeat lateral view is there is concern of a patellar injury. Right knee lateral view XR: Negative lateral view of the knee. Pt did not have a head CT done as the pt does not have signs of head trauma. Pt was ambulated in the ED and she had no difficulties. She ambulated well in the ED. Therefore, pt will be discharged to residential with follow up from her PCP. Pt is instructed to return to the ED for any worsening or new symptoms. Pt is hemodynamically stable, alert and oriented x1. - Diagnoses Provider Diagnoses: Accidental fall Discharge - Discharge Plan Condition: Stable Disposition: HOME Patient Education Materials: Fall Prevention for Older Adults (ED) Referrals: Millie Martinez NP [Primary Care Provider] - 3 Days Additional Instructions: Please follow up with your primary care provider. RETURN TO THE ED FOR ANY WORSENING SYMPTOMS. The documentation as recorded by the Renato thompson Angela accurately reflects the service I personally performed and the decisions made by , Adal Peoples MD.
== END 2017-05-02 11:13 | disposition home or self-care (01) ==
LOC: ED 07:32
DX: S80.01XA Contusion of right knee, initial encounter (principal); S60.221A Contusion of right hand, initial encounter; M25.561 Pain in right knee; Z91.81 History of falling; W19.XXXA Unspecified fall, initial encounter; Y92.129 Unspecified place in nursing home as the place of occurrence of the external cause
CPT/HCPCS: 36415; 85610; 99282

== ENCOUNTER 2017-05-07 16:55 | Inpatient (IN) | payer MEDICARE ==
--- NOTE | 2017-05-07 18:49 | RAD ---
INDICATION: Abrasion to "frontal scalp" and right periorbital bruising in a patient with multiple falls COMPARISON: CT of the brain dated April 27, 2017 TECHNIQUE: Contiguous axial sections of the brain were obtained from the skull base to the vertex without contrast. FINDINGS: The ventricles, cisterns and sulci exhibit symmetrical involutional changes. There is periventricular and subcortical white matter hypoattenuation most consistent with chronic microvascular disease unchanged from the prior CT examination. The erickson-white matter differentiation is adequately maintained and there is no sulcal effacement. No significant focal abnormality or mass effect is present. There is no evidence for intracranial hemorrhage. Overlying the subcutaneous tissues overlying the bilateral frontal bones, eccentric towards the right there is subgaleal hyperattenuation and thickening at the 9 mm in thickness with a more hyperattenuating material towards the vertex of the skull consistent with subgaleal hematoma. There is no underlying calvarial fracture. 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 The visualized portion of the paranasal sinuses appear clear. The mastoid air cells are well aerated bilaterally. IMPRESSION: CT findings are consistent with subgaleal hematoma and laceration overlying the frontal bones without underlying calvarial fracture or acute intracranial hemorrhage.
--- NOTE | 2017-05-07 18:57 | RAD ---
INDICATION: "Trauma" TECHNIQUE: An AP view of the pelvis was obtained. FINDINGS: The bones are in normal alignment. No fracture is seen. Joint spaces appear maintained. IMPRESSION: NO EVIDENCE FOR FRACTURE. IF THE PATIENT'S SYMPTOMS PERSIST RECOMMEND FOLLOW-UP IMAGING.
[2017-05-07] MEDS ORDERED: Acetaminophen TAB* 325 MG PO ONE (19:42)
[2017-05-07] MEDS ORDERED: Docusate CAP* 100 MG PO PRN (21:17)
[2017-05-07] MEDS ORDERED: Ondansetron INJ* 2 MG/ML VIAL IV PRN (21:17)
[2017-05-07] MEDS ORDERED: Al Hydrox/Mg Hydrox/Simet LIQ* 30 ML UDC PO PRN (21:17)
[2017-05-07] MEDS ORDERED: Senna TAB PO PRN (21:17)
[2017-05-07 21:20] LABS: ABS Basophils 0.1 10^3/ul (0-0.2); ABS Eosinophils 0.1 10^3/ul (0-0.6); ABS Lymphocytes 0.9 10^3/ul (1.0-4.8); ABS Monocytes 0.5 10^3/ul (0-0.8); ABS Neutrophils 5.3 10^3/ul (1.5-7.7); ABS Nucleated RBC 0 10^3/ul; Eosinophil % 0.8 % (0-6); Hematocrit 38 % (35-47); Hemoglobin 12.7 g/dl (12.0-16.0); Lymphocyte % 12.8 % (25-47); Mean Corpuscular HGB Conc 34 g/dl (31-36); Mean Corpuscular Hemoglobin 31 pg (27-31); Mean Corpuscular Volume 90 fL (80-97); Mean Platelet Volume 8 um3 (7.4-10.4); Nucleated Red Blood Cells % 0.1; Platelet Count 271 10^3/ul (150-450); Red Blood Count 4.16 10^6/ul (4.0-5.4); Red Cell Distribution Width 15 % (10.5-15); White Blood Count 6.9 10^3/ul (3.5-10.8)
[2017-05-07] MEDS ORDERED: Benzonatate CAP* 100 MG PO PRN (21:22)
[2017-05-07] MEDS ORDERED: Albuterol HFA INHALER* 8 gm MDI INH PRN (21:22)
[2017-05-07] MEDS ORDERED: Loperamide CAP* 2 MG PO PRN (21:22)
[2017-05-07] MEDS ORDERED: Albuterol 2.5 MG/3 ML NEB.SOL* (0.083%) INH PRN (21:22)
[2017-05-07 21:37] LABS: EGFR Non-African American 59.5 (>60)
[2017-05-07 22:26] LABS: INR 3.54 (0.77-1.02)
[2017-05-08] MEDS: Acetaminophen TAB* 325 MG PO PRN (00:02)
[2017-05-08 00:56] LABS: Urine Appearance Cloudy; Urine Blood Negative (Negative); Urine Color Yellow; Urine Ketones Negative (Negative); Urine Protein Negative (Negative); Urine Specific Gravity 1.017 (1.010-1.030); Urine Urobilinogen Negative (Negative)
--- NOTE | 2017-05-08 04:33 | HP ---
CC: Millie Martinez NP * HISTORY AND PHYSICAL: DATE OF ADMISSION: 05/07/17 TIME OF EVALUATION: 2100. PRIMARY CARE PROVIDER: Millie Martinez NP CHIEF COMPLAINT: Falls. HISTORY OF PRESENT ILLNESS: This is a 77-year-old female with past medical history of dementia, moderate, with atrial fibrillation, on anticoagulation, who presents to the emergency room for recurrent falls. The family is at the bedside, several family members, they state she fell 3 times today in the past 24 hours. She lives in [facility]. She was seen here on 05/02/17 again for falls. They state that she has fallen several times in the past month and it is unclear what happened and why it happens. They state the staff finds her in the room and she was on the ground. This evening it was rather significant fall with a significant amount of bruising on her face. The family states that she has moderate dementia that she sometimes recognizes family members and she is able to express her needs normally. She is ambulating without an issue, but other the past few months she has declined with her dementia. She has not been given any assistive device. She has been having issues with wandering and this evening she was belligerent, which is the first time for her. The family states they are meeting with [facility] tomorrow to talk about their notice and how she needs to go to a custodial facility and that she cannot stay at or move to [facility]. The patient on my encounter is alert and oriented x1. She has difficulty following commands and answering questions appropriately. The family states the only new medication that was started that coincides with her falls was the Zoloft and they have since been weaning her off this. She is not yet completely off Zoloft yet, otherwise no new medications. Limited review of systems as mentioned. PAST MEDICAL HISTORY: 1. Atrial fibrillation, on anticoagulation. 2. Dementia, moderate to severe. 3. Hyperlipidemia. 4. Hypertension. 5. Asthma. 6. Seasonal allergies. 7. Irritable bowel syndrome. 8. GERD. MEDICATIONS: 1. Align 4 mg p.o. daily. 2. Multivitamin daily. 3. Cetirizine 1 tab daily. 4. Lasix 20 mg p.o. daily. 5. Klor-Con 20 mEq 2 tabs daily. 6. Losartan 25 mg p.o. daily. 7. Metoprolol succinate 12.5 mg p.o. daily. 8. Omeprazole 20 mg p.o. daily. 9. Atorvastatin 40 mg p.o. daily. 10. Zoloft down to 12.5 mg p.o. daily, started on 05/03/17 for 2 weeks and then to be discontinued. 11. Warfarin dose adjusted for an INR between 2 to 3. 12. Loperamide as needed. 13. Benzonatate as needed. 14. Tylenol as needed. 15. Benadryl as needed. 16. Albuterol as needed. ALLERGIES: ERYTHROMYCIN. FAMILY HISTORY: Reviewed and noncontributory. SOCIAL HISTORY: The patient as mentioned lives at [facility]. She ambulates without any assistive device. She is a remote smoker, 20- pack year. No alcohol or illicit drug use. Her healthcare proxy is her son , Chandan, confirmed she is a DNR/DNI. REVIEW OF SYSTEMS: Limited due to the patient's advanced dementia. PHYSICAL EXAMINATION GENERAL: No acute distress, resting comfortably with the family at the bedside. VITAL SIGNS: Temp 98.4, pulse rate 104, respiratory rate 20, oxygen saturation 96% on room air, and blood pressure 145/72. HEENT: The patient with ecchymosis, more predominantly around her right side of her face. Head, normocephalic. Pupils equal and reactive, anicteric. Oropharynx, the patient unwilling to open her mouth for me. NECK: Supple. No lymphadenopathy. RESPIRATORY: Diminished breath sounds. No wheezes, rhonchi, or rales. CARDIAC: Irregularly irregular rate and rhythm. ABDOMEN: Soft, nontender, nondistended. EXTREMITIES: No clubbing, cyanosis, or edema. +1 DPs. NEUROLOGIC: Alert and oriented x1. No gross focal neurological deficits. DIAGNOSTIC STUDIES/LAB DATA: White count 6.9, hemoglobin 12.7, hematocrit 38, platelets 271. Radiographic data: Head CT shows subgaleal hematoma and laceration overlying the frontal bones without underlying calvarial fracture or acute intracranial hemorrhage. Pelvis x-ray: No evidence for fracture. EKG: Shows atrial flutter, flattened T waves, QTc of 524. ASSESSMENT AND PLAN: This is a 77-year-old female with the past medical history of [id number] dementia, who presents to the emergency room from [facility] with increasing in falls. 1. Falls. Assessment: I suspect this is progression of her dementia without any underlying etiology behind the exacerbation. She is unsupervised and she does not use any assistive device, which is likely contributing to her recurrent falls. The other possibility is she could be having an arrhythmia. Her QTc is prolonged. Her blood pressures have ranged from 79/60 to 145/72, this could be orthostatic hypotension syncopal episode. Plan: We will admit her to telemetry, follow up on her BMP and troponin. We will check orthostatics now. We are going to hold her antihypertensive agents including her Lasix and Cozaar. We will continue her metoprolol at low dose and monitor her blood pressures closely. We will follow up on UA as well. I spoke with the family that she is no longer a candidate for Coumadin in the setting of her increase in falls as the benefits of Coumadin no longer outweighs the risks. The family understands. Also, put in for Social Work consult and Physical Therapy consult as the patient needs to go to higher level of care. We will also order an echo. The last one was in 2014, make sure there is no valvular abnormality contributing to her falls. CHRONIC MEDICAL PROBLEMS: 1. Hypertension, as mentioned, we will continue metoprolol, but hold her Lasix and her Cozaar. 2. GERD, continue on omeprazole. 3. Dementia and depression, weaning her off sertraline. 4. Atrial fibrillation, on anticoagulation. We will continue her metoprolol and discontinue her Coumadin in the setting of her falls. 5. Hyperlipidemia, continue her atorvastatin. 6. Asthma, continue her albuterol. 7. FEN. Place the patient on heart-healthy diet. 8. DVT prophylaxis. The scores high risk. We will follow up on her INR and place her on SCDs in the interim. 9. Code status. Confirmed she is DNR/DNI. She does not have a MOLST form here. We will have the family fill it out for her as she does not have capacity filling out for herself. PATIENT TIME: Greater than 60 minutes was spent doing the history and physical , more than half the time spent in direct patient contact. [id number]/[facility] #: [id number] SARWAT
[2017-05-08] MEDS ORDERED: cefTRIAXone(*) 1 GM in NS 0.9% 50 ML* 50 ML IVPB SCH (06:17)
--- NOTE | 2017-05-08 06:18 | PN ---
Progress Note - Progress Note Date of Service: 05/08/17 Note: U/A shows pyuria, will start ceftriaxone empirically
[2017-05-08] MEDS: cefTRIAXone 1000 MG SYRINGE IVPB Q24H IVPB SCH ×2 (07:28)
[2017-05-08] MEDS ORDERED: Sertraline* 25 MG TAB PO SCH (09:00)
[2017-05-08] MEDS: Omeprazole CAP* 20 MG PO SCH (09:02)
[2017-05-08] MEDS: Nystatin TOP POWDER* 15 GM BTL TOPICAL SCH ×2 (09:02→21:44)
[2017-05-08] MEDS: Metoprolol Succinate XL TAB* 25 MG PO SCH (09:02)
[2017-05-08] MEDS ORDERED: Perflutren Lipid Microsphere* 3 ML VIAL ONE (10:46)
--- NOTE | 2017-05-08 12:16 | ED ---
Marcela Mckenzie Thomas, scribed for Tae Tenorio MD on 05/07/17 at 1726 . Complex/Multi-Sys Presentation - HPI Summary HPI Summary: The patient is a 79 year old female with dementia who lives at [facility]. Per [facility] staff, the patient was found on the floor and may have had a fall, but this was not witnessed. She has a small abrasion on her scalp and right orbit. She is on Coumadin. She does not give a good history secondary to the dementia; however, she is not voicing any complaints at this time. The patient is accompanied by her two family members, who are concerned that she is not safe at [facility]. - History Of Current Complaint Chief Complaint: EDHeadInjury Time Seen by Provider: 05/07/17 17:03 Hx Obtained From: Family/Manager Security And Safety, Other: - [facility] staff Hx From Patient Unobtainable Due To: Other - History somewhat limited by dementia Onset/Duration: Still Present Timing: Constant Location: Pain At: - tailbone Alleviating Factor(s): None Associated Signs And Symptoms: Positive: Other - Possible fall, abrasion - Allergies/Home Medications Allergies/Adverse Reactions: Allergies Allergy/AdvReac Type Severity Reaction Status Date / Time erythromycin base Allergy Unknown Verified 05/07/17 17:17 Reaction Details Home Medications: Home Medications Furosemide TAB* [Lasix TAB*] 20 mg PO DAILY 05/07/17 [History Confirmed 05/07/17 ] Potassium Chloride [Klor-Con M20] 40 meq PO DAILY 05/07/17 [History Confirmed ] Sertraline* [Zoloft*] 12.5 mg PO DAILY 05/07/17 [History Confirmed 05/07/17] PMH/Surg Hx/FS Hx/Imm Hx Endocrine/Hematology History: Reports: Hx Anticoagulant Therapy Denies: Hx Diabetes, Hx Thyroid Disease Cardiovascular History: Reports: Hx Hypertension Denies: Hx Atrial Fibrillation, Hx Congestive Heart Failure Respiratory History: Denies: Hx Asthma, Hx Chronic Obstructive Pulmonary Disease (COPD) GI History: Denies: Hx Ulcer History: Denies: Hx Dialysis, Hx Renal Disease Sensory History: Reports: Hx Contacts or Glasses Opthamlomology History: Reports: Hx Contacts or Glasses Neurological History: Reports: Hx Dementia, Other Neuro Impairments/Disorders - Alzheimer's - Cancer History Hx Chemotherapy: No Hx Radiation Therapy: No - Surgical History Surgery Procedure, Year, and Place: appy, hysterectomy Infectious Disease History: No Infectious Disease History: Denies: Hx Hepatitis, Hx Human Immunodeficiency Virus (HIV), Traveled Outside the [place] in Last 30 Days - Family History Known Family History: Positive: Unknown - due to level 5 caveat - pt has Alzheimer's - Social History Alcohol Use: None Substance Use Type: Reports: None Smoking Status (MU): Former Smoker Review of Systems - ROS Summary Review of Systems Summary: LEVEL 5 CAVEAT: ROS limited by dementia Negative: Fever Positive: Other - Abrasion Neurological: Other - Possible fall All Other Systems Reviewed And Are Negative: No Physical Exam - Summary Physical Exam Summary: Appearance: The patient is well-nourished in no acute distress and in no acute pain. Skin: The skin is warm and dry and skin color reflects adequate perfusion. She has an abrasion to her frontal scalp and under her right infraorbital area. HEENT: The head is normocephalic and atraumatic. The pupils are equal and reactive. The conjunctivae are clear and without drainage.~Nares are patent and without drainage. Mouth reveals moist mucous membranes and the throat is without erythema and exudate. The external ears are intact. The ear canals are patent and without drainage. The tympanic membranes are intact. Neck: the neck is supple with full range of motion and non-tender. There are no carotid bruits. There is no neck vein distension. Respiratory: Chest is non-tender. Lungs are clear to auscultation and breath sounds are symmetrical and equal. Cardiovascular: Heart is regular rate and rhythm.~There is no murmur or rub auscultated. There is no peripheral edema and pulses are symmetrical and equal. Abdomen: The abdomen is soft and non-tender. There are normal bowel sounds heard in all four quadrants and there is no organomegaly palpated. Musculoskeletal: There is no back tenderness noted. Extremities are non-tender with full range of motion. There is good capillary refill. There is no peripheral edema or calf tenderness elicited. Neurological: Patient is alert and oriented to person. The patient has symmetrical motor strength in all four extremities. Cranial nerves are grossly intact. Deep tendon reflexes are symmetrical and equal in all four extremities. Psychiatric: The patient has an appropriate affect and does not exhibit any anxiety or depression. Triage Information Reviewed: Yes Vital Signs On Initial Exam: Initial Vitals Temp Pulse Resp BP Pulse Ox 98.4 F 76 12 119/84 95 05/07/17 17:06 05/07/17 17:06 05/07/17 17:06 05/07/17 17:06 05/07/17 17:06 Vital Signs Reviewed: Yes Diagnostics - Vital Signs Vital Signs Temp Pulse Resp BP Pulse Ox 05/07/17 17:10 89 19 96 05/07/17 17:08 119/84 05/07/17 17:06 98.4 F 76 12 119/84 95 - Laboratory Lab Results: Lab Results 05/07/17 05/07/17 Range/Units 21:05 21:05 WBC 6.9 (3.5-10.8) 10^3/ul RBC 4.16 (4.0-5.4) 10^6/ul Hgb 12.7 (12.0-16.0) g/dl Hct 38 (35-47) % MCV 90 (80-97) fL MCH 31 (27-31) pg MCHC 34 (31-36) g/dl RDW 15 (10.5-15) % Plt Count 271 (150-450) 10^3/ul MPV 8 (7.4-10.4) um3 Neut % (Auto) 77.5 (38-83) % Lymph % (Auto) 12.8 L (25-47) % Lane % (Auto) 7.9 H (0-7) % Eos % (Auto) 0.8 (0-6) % Baso % (Auto) 1.0 (0-2) % Absolute Neuts (auto) 5.3 (1.5-7.7) 10^3/ul Absolute Lymphs (auto) 0.9 L (1.0-4.8) 10^3/ul Absolute Monos (auto) 0.5 (0-0.8) 10^3/ul Absolute Eos (auto) 0.1 (0-0.6) 10^3/ul Absolute Basos (auto) 0.1 (0-0.2) 10^3/ul Absolute Nucleated RBC 0 10^3/ul Nucleated RBC % 0.1 Sodium 137 (133-145) mmol/L Potassium 4.0 (3.5-5.0) mmol/L Chloride 105 (101-111) mmol/L Carbon Dioxide 23 (22-32) mmol/L Anion Gap 9 (2-11) mmol/L BUN 15 (6-24) mg/dL Creatinine 0.92 (0.51-0.95) mg/dL Est GFR ( Amer) 76.5 (>60) Est GFR (Non-Af Amer) 59.5 (>60) BUN/Creatinine Ratio 16.3 (8-20) Glucose 112 H (70-100) mg/dL Calcium 9.6 (8.6-10.3) mg/dL Magnesium 1.9 (1.9-2.7) mg/dL Total Bilirubin 1.30 H (0.2-1.0) mg/dL AST 33 (13-39) U/L ALT 22 (7-52) U/L Alkaline Phosphatase 92 (34-104) U/L Troponin I 0.00 (<0.04) ng/mL Total Protein 7.2 (6.4-8.9) g/dL Albumin 4.2 (3.2-5.2) g/dL Globulin 3.0 (2-4) g/dL Albumin/Globulin Ratio 1.4 (1-3) TSH 1.88 (0.34-5.60) mcIU/mL Result Diagrams: 05/07/17 21:05 05/07/17 21:05 Lab Statement: Any lab studies that have been ordered have been reviewed, and results considered in the medical decision making process. - CT CT Brain CT Interpretation: No Acute Changes - CT findings are consistent with subgaleal hematoma and laceration overlying the frontal bones without underlying calvarial fracture or acute intracranial hemorrhage. Dr. Tenorio has reviewed this report. CT Interpretation Completed By: Radiologist CT Pelvis CT Interpretation: No Acute Changes - NO EVIDENCE FOR FRACTURE. Dr. Tenorio has reviewed this report. CT Interpretation Completed By: Radiologist Re-Evaluation - Re-Evaluation First Eval Re-Evaluation Time: 20:53 Comment: Discussed results. Patient will be admitted. Complex Multi-Symp Course/Dx Course Of Treatment: Ms. Mota presented after a fall today. She has apparently fallen 3 times today and several times in the last week or two. Today she hit her face and suffeered abrasions and contusions. I have asked the hospitalist service to evaluate her for safety at the [facility]. - Diagnoses Provider Diagnoses: Syncope - Physician Notifications Discussed Care Of Patient With: Joanna Moses Time Discussed With Above Provider: 20:54 Instructed by Provider To: Admit As Inpatient Discharge - Discharge Plan Condition: Stable Disposition: ADMITTED TO [facility] documentation as recorded by the Marcela thompson Thomas accurately reflects the service I personally performed and the decisions made by me, Tae Tenorio MD.
--- NOTE | 2017-05-08 12:54 | PN ---
Subjective Date of Service: 05/08/17 Interval History: No c/o. Objective Active Medications: Acetaminophen (Tylenol Tab*) 650 mg PO Q4H PRN PRN Reason: FEVER/PAIN Last Admin: 05/08/17 00:02 Dose: 650 mg Al Hydrox/Mg Hydrox/Simethicone (Maalox Plus*) 30 ml PO Q6H PRN PRN Reason: INDIGESTION Albuterol (Ventolin 2.5 Mg/3 Ml Neb.Christelle*) 2.5 mg INH Q4H PRN PRN Reason: SHORTNESS OF BREATH Albuterol (Ventolin Hfa Inhaler*) 2 puff INH Q4H PRN PRN Reason: SHORTNESS OF BREATH Atorvastatin Calcium (Lipitor*) 40 mg PO BEDTIME SULY Benzonatate (Tessalon Cap*) 100 mg PO TID PRN PRN Reason: COUGH Docusate Sodium (Colace Cap*) 100 mg PO BID PRN PRN Reason: CONSTIPATION Ceftriaxone Sodium 1,000 mg/ (Sterile Water) 10 mls @ 40 mls/hr IVPB Q24H [facility] Last Admin: 05/08/17 07:28 Dose: 40 mls/hr Loperamide HCl (Imodium Cap*) 2 mg PO DAILY PRN PRN Reason: LOOSE STOOLS Metoprolol Succinate (Toprol Xl Tab*) 12.5 mg PO DAILY [facility] Last Admin: 05/08/17 09:02 Dose: 12.5 mg Nystatin (Nystatin Top Powder*) 1 applic TOPICAL BID [facility] Last Admin: 05/08/17 09:02 Dose: 1 applic Omeprazole (Prilosec Cap*) 20 mg PO DAILY [facility] Last Admin: 05/08/17 09:02 Dose: 20 mg Ondansetron HCl (Zofran Inj*) 4 mg IV Q4H PRN PRN Reason: NAUSEA/VOMITING Senna (Senokot Tab*) 1 tab PO BID PRN PRN Reason: CONSTIPATION Vital Signs - 8 hr 05/08/17 05/08/17 05/08/17 04:51 04:54 04:56 Temperature 97.6 F 97.7 F 97.9 F Pulse Rate 81 72 95 Respiratory 16 16 16 Rate Blood Pressure 145/87 150/98 151/99 (mmHg) O2 Sat by Pulse 100 100 98 Oximetry 05/08/17 05/08/17 05/08/17 05:37 05:38 07:15 Temperature 97.7 F Pulse Rate 72 95 102 Respiratory 16 Rate Blood Pressure 150/98 151/99 121/75 (mmHg) O2 Sat by Pulse 97 Oximetry 05/08/17 08:00 Temperature Pulse Rate Respiratory 16 Rate Blood Pressure (mmHg) O2 Sat by Pulse Oximetry Oxygen Devices in Use Now: None Appearance: Alert, sitting up in bed. In good spirits. Looks comfortable. Eyes: No Scleral Icterus Neck: NL Appearance and Movements; NL JVP, No Thyroid Enlargement, Masses Respiratory: Symmetrical Chest Expansion and Respiratory Effort, Clear to Auscultation, Clear to Percussion Cardiovascular: NL Sounds; No Murmurs; No JVD, No Edema, - - irreg Extremities: No Edema, No Clubbing, Cyanosis, - Skin: No Nodules or Sclerosis, - - striking BL periorbital ecchymoses Neurological: NL Sensation - Polite and cooperative. Dodges most questions, finally gave her age as 72. She could not name any relatives and did not know the name of the facility. No tremor. Result Diagrams: 05/07/17 21:05 05/07/17 21:05 Additional Lab and Data: Lab Results 05/07/17 05/07/17 Range/Units 21:05 21:05 WBC 6.9 (3.5-10.8) 10^3/ul RBC 4.16 (4.0-5.4) 10^6/ul Hgb 12.7 (12.0-16.0) g/dl Hct 38 (35-47) % MCV 90 (80-97) fL MCH 31 (27-31) pg MCHC 34 (31-36) g/dl RDW 15 (10.5-15) % Plt Count 271 (150-450) 10^3/ul MPV 8 (7.4-10.4) um3 Neut % (Auto) 77.5 (38-83) % Lymph % (Auto) 12.8 L (25-47) % Murray % (Auto) 7.9 H (0-7) % Eos % (Auto) 0.8 (0-6) % Baso % (Auto) 1.0 (0-2) % Absolute Neuts (auto) 5.3 (1.5-7.7) 10^3/ul Absolute Lymphs (auto) 0.9 L (1.0-4.8) 10^3/ul Absolute Monos (auto) 0.5 (0-0.8) 10^3/ul Absolute Eos (auto) 0.1 (0-0.6) 10^3/ul Absolute Basos (auto) 0.1 (0-0.2) 10^3/ul Absolute Nucleated RBC 0 10^3/ul Nucleated RBC % 0.1 Sodium 137 (133-145) mmol/L Potassium 4.0 (3.5-5.0) mmol/L Chloride 105 (101-111) mmol/L Carbon Dioxide 23 (22-32) mmol/L Anion Gap 9 (2-11) mmol/L BUN 15 (6-24) mg/dL Creatinine 0.92 (0.51-0.95) mg/dL Est GFR ( Amer) 76.5 (>60) Est GFR (Non-Af Amer) 59.5 (>60) BUN/Creatinine Ratio 16.3 (8-20) Glucose 112 H (70-100) mg/dL Calcium 9.6 (8.6-10.3) mg/dL Magnesium 1.9 (1.9-2.7) mg/dL Total Bilirubin 1.30 H (0.2-1.0) mg/dL AST 33 (13-39) U/L ALT 22 (7-52) U/L Alkaline Phosphatase 92 (34-104) U/L Troponin I 0.00 (<0.04) ng/mL Total Protein 7.2 (6.4-8.9) g/dL Albumin 4.2 (3.2-5.2) g/dL Globulin 3.0 (2-4) g/dL Albumin/Globulin Ratio 1.4 (1-3) TSH 1.88 (0.34-5.60) mcIU/mL Microbiology and Other Data: Microbiology 05/07/17 22:48 Nasal Screen MRSA (PCR)(OFELIA) - Final Nasal Mrsa Not Detected Assess/Plan/Problems-Billing Assessment: - Patient Problems (1) UTI (urinary tract infection) Current Visit: Yes Status: Acute Comment: C&S pending. Continue ceftrixone. (2) Atrial fibrillation Current Visit: Yes Status: Acute Code(s): I48.91 - UNSPECIFIED ATRIAL FIBRILLATION SNOMED Code(s): 07614565 Comment: AC stopped due to frequent falls, facial hemorrhage. Adequate rate control. Continue small dose metoprolol XL. (3) Dementia Current Visit: No Status: Acute Code(s): F03.90 - UNSPECIFIED DEMENTIA WITHOUT BEHAVIORAL DISTURBANCE SNOMED Code(s): 87089144 Comment: No behavior disturbance seen here. Stop sertraline, last dose . (4) HTN (hypertension) Current Visit: No Status: Acute Code(s): I10 - ESSENTIAL (PRIMARY) HYPERTENSION SNOMED Code(s): 74898662 Comment: Stop lisinopril due to low BP's. (5) Hyperlipidemia Current Visit: No Status: Acute Code(s): E78.5 - HYPERLIPIDEMIA, UNSPECIFIED SNOMED Code(s): 92049225 Comment: Continue lipitor.
--- NOTE | 2017-05-08 17:27 | ECHO ---
Patient: ALEXA KITCHEN [facility] Rec#: [id number] : 1940 Date: 05/08/2017 Age: 77y Height: 152.4 cm / 60.0 in Weight: 70.3 kg / 154.9 lbs Sex: F BSA: 1.7 Room#: 436 Admit Date#: 05/07/2017 Type: Inpatient Referring: Joanna Moses Reading: Jason Pierce MD Paleontology Teacher: Mecca Rojas RN RDCS CC: Millie Martinez NP Transthoracic Echocardiogram Indication: Atrial fibrillation, recurrent falls BP: 151/99 HR: 83 Rhythm: A-Fib Findings History: A. fib, HTN, HLD, asthma, dementia Technical Comments: The study quality is fair. The study is technically limited due to patient body habitus. The study was technically limited due to the patient's inability to lay in the left lateral decubitus position. Completed at 1430. Left Ventricle: The left ventricular chamber size is normal. There is global hypokinesis of the left ventricle with minor regional variation. There is mild to moderately decreased left ventricular systolic function. The estimated ejection fraction is 40-45%. There is septal flattening of the interventricular septum consistent with right ventricular volume or pressure overload. Abnormal left ventricular diastolic function is observed. Left Atrium: The left atrium is severely dilated. Right Ventricle: The right ventricle wall thickness is mildly increased. The right ventricle is mildly dilated. The right ventricular global systolic function is normal. Right Atrium: The right atrium is moderately dilated. Aortic Valve: The aortic valve is trileaflet. The aortic valve leaflets are mildly thickened. There is aortic annular calcification. There is a trace of aortic regurgitation. There is mild aortic stenosis. The mean gradient of the aortic valve is 4.2 mmHg. The peak instantaneous gradient of the aortic valve is 7.8 mmHg. The aortic valve area, by peak velocities, is calculated at 1.5 cm2. The aortic valve area, by VTI's, is calculated at 1.4 cm2. Mitral Valve: The mitral valve leaflets are mildly thickened. Mitral valve leaflet mobility is moderately restricted. There is mild mitral regurgitation. There is mild to moderate mitral stenosis. Tricuspid Valve: The tricuspid valve leaflets are normal. There is moderate to severe tricuspid regurgitation. There is evidence of moderate pulmonary hypertension. There is no tricuspid stenosis. Pulmonic Valve: The pulmonic valve appears normal. There is no evidence of pulmonic regurgitation. There is no pulmonic stenosis. Pericardium: There is no significant pericardial effusion. A pericardial fat pad is visualized. Aorta: There is no dilatation of the ascending aorta. The aortic arch is not well visualized. There is no dilation of the aortic root. Pulmonary Artery: The main pulmonary artery appears normal. Venous: The inferior vena cava is dilated. There is less than 50% respiratory change in the inferior vena cava dimension. Hepatic vein systolic flow is reversed. Contrast: Definity was used to optimize study. A total of 2 ml of diluted Definity was given IV. Summary: There are no significant changes when compared to the previous study done on 01/13/15 Conclusions There is global hypokinesis of the left ventricle with minor regional variation. There is mild to moderately decreased left ventricular systolic function. The estimated ejection fraction is 40-45%. There is septal flattening of the interventricular septum consistent with right ventricular volume or pressure overload. The right ventricular global systolic function is normal. The aortic valve leaflets are mildly thickened. The mean gradient of the aortic valve is 4.2 mmHg. There is mild mitral regurgitation. There is moderate to severe tricuspid regurgitation. There is evidence of moderate pulmonary hypertension. There is no significant pericardial effusion. There are no significant changes when compared to the previous study done on 01/13/15 Measurements Name Value Normal Range RVDdMajor (2D) 3.6 cm (2.2 - 4.4) RVAW (2D) 0.6 cm (0.2 - 0.5) RAd ISD 4CH 5.8 cm (3.4 - 4.9) RA (A4C)W 4.6 cm (2.9 - 4.6) IVSd (2D) 0.8 cm (0.6 - 1) LVPWd (2D) 0.9 cm (0.6 - 1) LVIDd (2D) 3.9 cm (3.6 - 5.4) LVIDs (2D) 3.1 cm - LV FS (2D) 21 % (25 - 45) EF Teichholz (2D) 44 % - Aortic Annulus 2 cm (1.4 - 2.6) Ao root diameter (2D) 2.9 cm (2.1 - 3.5) Ascending Ao 3 cm (2.1 - 3.4) LA dimension (AP) 2D 5.5 cm (2.3 - 3.8) LAd ISD 4CH 7.1 cm (2.9 - 5.3) LA ISD 4CH W 5.2 cm (2.5 - 4.5) Name Value Normal Range LA ESV SP 4CH (A/L) 87 ml - LA ESV SP 2CH (A/L) 101 ml - LA ESV BP (A/L) 94 ml - LA ESV BP (A/L) index 56 ml/m2 - LA ESV SP 4CH (MOD) 82 ml - LA ESV SP 2CH (MOD) 99 ml - Name Value Normal Range MV E-wave Vmax 2 m/sec - MV deceleration time 482 msec - LV septal e' Vmax 0.07 m/sec - LV lateral e' Vmax 0.07 m/sec - LV E:e' septal ratio 28.6 ratio - LV E:e' lateral ratio 28.6 ratio - Name Value Normal Range AV Vmax 1.4 m/sec - AV VTI 27.4 cm - AV peak gradient 7.8 mmHg - AV mean gradient 4.2 mmHg - LVOT diameter 2 cm - LVOT Vmax 0.67 m/sec - LVOT VTI 12.2 cm - LVOT peak gradient 1.8 mmHg - LVOT mean gradient 1 mmHg - DOI (VTI) 0.45 ratio - DOI (Vmax) 0.48 ratio - LUNA (continuity Vmax) 1.5 cm2 - LUNA (continuity VTI) 1.4 cm2 - Name Value Normal Range MV Vmax 2.2 m/sec - MV VTI 41.8 cm - MV peak gradient 19.3 mmHg - MV mean gradient 10.8 mmHg - MV PHT 136 msec - MVA (PHT) 1.6 cm2 - MVA (continuity VTI) 0.9 cm2 - Name Value Normal Range TR Vmax 2.8 m/sec - TR peak gradient 31 mmHg - RAP 15 mmHg - RVSP 46 mmHg - IVC diameter 2.2 cm - Name Value Normal Range PV Vmax 0.78 m/sec -
[2017-05-08] MEDS: Atorvastatin* 40 MG TAB PO SCH (21:42)
[2017-05-09] MEDS: cefTRIAXone 1000 MG SYRINGE IVPB Q24H IVPB SCH ×2 (06:00)
[2017-05-09] MEDS: Nystatin TOP POWDER* 15 GM BTL TOPICAL SCH ×2 (08:07→22:39)
[2017-05-09] MEDS: Metoprolol Succinate XL TAB* 25 MG PO SCH (08:07)
[2017-05-09] MEDS: Omeprazole CAP* 20 MG PO SCH (08:07)
--- NOTE | 2017-05-09 11:36 | PN ---
Subjective Date of Service: 05/09/17 Interval History: went for a walk with the aide today and did several laps, felt great. no complaints this morning but does not know where she is or why she is here. Objective Active Medications: Acetaminophen (Tylenol Tab*) 650 mg PO Q4H PRN PRN Reason: FEVER/PAIN Last Admin: 05/08/17 00:02 Dose: 650 mg Al Hydrox/Mg Hydrox/Simethicone (Maalox Plus*) 30 ml PO Q6H PRN PRN Reason: INDIGESTION Albuterol (Ventolin 2.5 Mg/3 Ml Neb.Christelle*) 2.5 mg INH Q4H PRN PRN Reason: SHORTNESS OF BREATH Albuterol (Ventolin Hfa Inhaler*) 2 puff INH Q4H PRN PRN Reason: SHORTNESS OF BREATH Atorvastatin Calcium (Lipitor*) 40 mg PO BEDTIME [facility] Last Admin: 05/08/17 21:42 Dose: Not Given Benzonatate (Tessalon Cap*) 100 mg PO TID PRN PRN Reason: COUGH Docusate Sodium (Colace Cap*) 100 mg PO BID PRN PRN Reason: CONSTIPATION Ceftriaxone Sodium 1,000 mg/ (Sterile Water) 10 mls @ 40 mls/hr IVPB Q24H [facility] Last Admin: 05/09/17 06:00 Dose: 40 mls/hr Loperamide HCl (Imodium Cap*) 2 mg PO DAILY PRN PRN Reason: LOOSE STOOLS Metoprolol Succinate (Toprol Xl Tab*) 12.5 mg PO DAILY [facility] Last Admin: 05/09/17 08:07 Dose: 12.5 mg Nystatin (Nystatin Top Powder*) 1 applic TOPICAL BID [facility] Last Admin: 05/09/17 08:07 Dose: 1 applic Omeprazole (Prilosec Cap*) 20 mg PO DAILY [facility] Last Admin: 05/09/17 08:07 Dose: 20 mg Ondansetron HCl (Zofran Inj*) 4 mg IV Q4H PRN PRN Reason: NAUSEA/VOMITING Senna (Senokot Tab*) 1 tab PO BID PRN PRN Reason: CONSTIPATION Vital Signs - 8 hr 05/09/17 05/09/17 05/09/17 03:51 08:00 08:05 Temperature 98.1 F 97.6 F Pulse Rate 116 79 Respiratory 21 18 18 Rate Blood Pressure 135/88 125/66 (mmHg) O2 Sat by Pulse 99 95 Oximetry Oxygen Devices in Use Now: None Appearance: sitting up in chair, well appearing, facial echymoses Eyes: No Scleral Icterus Ears/Nose/Mouth/Throat: NL Teeth, Lips, Gums Neck: NL Appearance and Movements; NL JVP Respiratory: Symmetrical Chest Expansion and Respiratory Effort, Clear to Auscultation Cardiovascular: NL Sounds; No Murmurs; No JVD, - - irregularly irregular rhythm Abdominal: NL Sounds; No Tenderness; No Distention, No Hepatosplenomegaly Lymphatic: - - r submandibular lymphadenopathy, nontender Skin: No Rash or Ulcers Neurological: - - oriented to person only Result Diagrams: 05/07/17 21:05 05/07/17 21:05 Additional Lab and Data: Lab Results 05/07/17 05/07/17 Range/Units 21:05 21:05 WBC 6.9 (3.5-10.8) 10^3/ul RBC 4.16 (4.0-5.4) 10^6/ul Hgb 12.7 (12.0-16.0) g/dl Hct 38 (35-47) % MCV 90 (80-97) fL MCH 31 (27-31) pg MCHC 34 (31-36) g/dl RDW 15 (10.5-15) % Plt Count 271 (150-450) 10^3/ul MPV 8 (7.4-10.4) um3 Neut % (Auto) 77.5 (38-83) % Lymph % (Auto) 12.8 L (25-47) % [place] % (Auto) 7.9 H (0-7) % Eos % (Auto) 0.8 (0-6) % Baso % (Auto) 1.0 (0-2) % Absolute Neuts (auto) 5.3 (1.5-7.7) 10^3/ul Absolute Lymphs (auto) 0.9 L (1.0-4.8) 10^3/ul Absolute Monos (auto) 0.5 (0-0.8) 10^3/ul Absolute Eos (auto) 0.1 (0-0.6) 10^3/ul Absolute Basos (auto) 0.1 (0-0.2) 10^3/ul Absolute Nucleated RBC 0 10^3/ul Nucleated RBC % 0.1 Sodium 137 (133-145) mmol/L Potassium 4.0 (3.5-5.0) mmol/L Chloride 105 (101-111) mmol/L Carbon Dioxide 23 (22-32) mmol/L Anion Gap 9 (2-11) mmol/L BUN 15 (6-24) mg/dL Creatinine 0.92 (0.51-0.95) mg/dL Est GFR ( Amer) 76.5 (>60) Est GFR (Non-Af Amer) 59.5 (>60) BUN/Creatinine Ratio 16.3 (8-20) Glucose 112 H (70-100) mg/dL Calcium 9.6 (8.6-10.3) mg/dL Magnesium 1.9 (1.9-2.7) mg/dL Total Bilirubin 1.30 H (0.2-1.0) mg/dL AST 33 (13-39) U/L ALT 22 (7-52) U/L Alkaline Phosphatase 92 (34-104) U/L Troponin I 0.00 (<0.04) ng/mL Total Protein 7.2 (6.4-8.9) g/dL Albumin 4.2 (3.2-5.2) g/dL Globulin 3.0 (2-4) g/dL Albumin/Globulin Ratio 1.4 (1-3) TSH 1.88 (0.34-5.60) mcIU/mL Microbiology and Other Data: Microbiology 05/07/17 22:48 Nasal Screen MRSA (PCR)(OFELIA) - Final Nasal Mrsa Not Detected Assess/Plan/Problems-Billing Assessment: - Patient Problems (1) Atrial fibrillation Current Visit: Yes Status: Acute Code(s): I48.91 - UNSPECIFIED ATRIAL FIBRILLATION SNOMED Code(s): 87865671 Comment: AC stopped due to frequent falls, facial hemorrhage. Adequate rate control. Continue metoprolol XL 12.5mg daily. (2) UTI (urinary tract infection) Current Visit: Yes Status: Acute Comment: Awaiting C&S. Continue ceftrixone. (3) Dementia Current Visit: No Status: Acute Code(s): F03.90 - UNSPECIFIED DEMENTIA WITHOUT BEHAVIORAL DISTURBANCE SNOMED Code(s): 56374373 Comment: No behavior disturbance seen here. sertraline has been discontinued , last dose 05/08. (4) HTN (hypertension) Current Visit: No Status: Acute Code(s): I10 - ESSENTIAL (PRIMARY) HYPERTENSION SNOMED Code(s): 67510796 Comment: Normotensive on metoprolol only.
[2017-05-09] MEDS: Atorvastatin* 40 MG TAB PO SCH (22:37)
[2017-05-10] MEDS: cefTRIAXone 1000 MG SYRINGE IVPB Q24H IVPB SCH ×2 (06:34)
[2017-05-10] MEDS: Omeprazole CAP* 20 MG PO SCH (07:56)
[2017-05-10] MEDS: Nystatin TOP POWDER* 15 GM BTL TOPICAL SCH ×4 (07:56→20:42)
[2017-05-10] MEDS: Metoprolol Succinate XL TAB* 25 MG PO SCH (07:56)
--- NOTE | 2017-05-10 11:48 | PN ---
Subjective Date of Service: 05/10/17 Interval History: seen with her son Alfa at the bedside this morning. she feels well and has no concerns. her son thinks she is back to her baseline. she has no pain, went for a walk and felt good today. Objective Active Medications: Acetaminophen (Tylenol Tab*) 650 mg PO Q4H PRN PRN Reason: FEVER/PAIN Last Admin: 05/08/17 00:02 Dose: 650 mg Al Hydrox/Mg Hydrox/Simethicone (Maalox Plus*) 30 ml PO Q6H PRN PRN Reason: INDIGESTION Albuterol (Ventolin 2.5 Mg/3 Ml Neb.Christelle*) 2.5 mg INH Q4H PRN PRN Reason: SHORTNESS OF BREATH Albuterol (Ventolin Hfa Inhaler*) 2 puff INH Q4H PRN PRN Reason: SHORTNESS OF BREATH Amoxicillin/Clavulanate Potassium (Augmentin Tab*) 875 mg PO BID [facility] Atorvastatin Calcium (Lipitor*) 40 mg PO BEDTIME [facility] Last Admin: 05/09/17 22:37 Dose: 40 mg Benzonatate (Tessalon Cap*) 100 mg PO TID PRN PRN Reason: COUGH Docusate Sodium (Colace Cap*) 100 mg PO BID PRN PRN Reason: CONSTIPATION Loperamide HCl (Imodium Cap*) 2 mg PO DAILY PRN PRN Reason: LOOSE STOOLS Metoprolol Succinate (Toprol Xl Tab*) 12.5 mg PO DAILY [facility] Last Admin: 05/10/17 07:56 Dose: 12.5 mg Nystatin (Nystatin Top Powder*) 1 applic TOPICAL BID [facility] Last Admin: 05/10/17 07:56 Dose: 1 applic Omeprazole (Prilosec Cap*) 20 mg PO DAILY [facility] Last Admin: 05/10/17 07:56 Dose: 20 mg Ondansetron HCl (Zofran Inj*) 4 mg IV Q4H PRN PRN Reason: NAUSEA/VOMITING Senna (Senokot Tab*) 1 tab PO BID PRN PRN Reason: CONSTIPATION Vital Signs - 8 hr 05/10/17 05/10/17 05/10/17 03:54 07:30 08:00 Temperature 97.9 F 97.8 F Pulse Rate 116 112 Respiratory 18 16 16 Rate Blood Pressure 142/83 134/94 (mmHg) O2 Sat by Pulse 98 99 Oximetry Oxygen Devices in Use Now: None Appearance: alert sitting up in the chair, echymoses on face Eyes: No Scleral Icterus Ears/Nose/Mouth/Throat: NL Teeth, Lips, Gums Neck: NL Appearance and Movements; NL JVP Respiratory: Symmetrical Chest Expansion and Respiratory Effort, Clear to Auscultation Cardiovascular: - - irregularly irregular rhythm Abdominal: NL Sounds; No Tenderness; No Distention, No Hepatosplenomegaly Lymphatic: No Cervical Adenopathy Extremities: No Edema Skin: No Rash or Ulcers Neurological: - - oriented only to person. she does not know where she is, the year, and tells me that her son is her . Result Diagrams: 05/07/17 21:05 05/07/17 21:05 Additional Lab and Data: Lab Results 05/07/17 05/07/17 Range/Units 21:05 21:05 WBC 6.9 (3.5-10.8) 10^3/ul RBC 4.16 (4.0-5.4) 10^6/ul Hgb 12.7 (12.0-16.0) g/dl Hct 38 (35-47) % MCV 90 (80-97) fL MCH 31 (27-31) pg MCHC 34 (31-36) g/dl RDW 15 (10.5-15) % Plt Count 271 (150-450) 10^3/ul MPV 8 (7.4-10.4) um3 Neut % (Auto) 77.5 (38-83) % Lymph % (Auto) 12.8 L (25-47) % [place] % (Auto) 7.9 H (0-7) % Eos % (Auto) 0.8 (0-6) % Baso % (Auto) 1.0 (0-2) % Absolute Neuts (auto) 5.3 (1.5-7.7) 10^3/ul Absolute Lymphs (auto) 0.9 L (1.0-4.8) 10^3/ul Absolute Monos (auto) 0.5 (0-0.8) 10^3/ul Absolute Eos (auto) 0.1 (0-0.6) 10^3/ul Absolute Basos (auto) 0.1 (0-0.2) 10^3/ul Absolute Nucleated RBC 0 10^3/ul Nucleated RBC % 0.1 Sodium 137 (133-145) mmol/L Potassium 4.0 (3.5-5.0) mmol/L Chloride 105 (101-111) mmol/L Carbon Dioxide 23 (22-32) mmol/L Anion Gap 9 (2-11) mmol/L BUN 15 (6-24) mg/dL Creatinine 0.92 (0.51-0.95) mg/dL Est GFR ( Amer) 76.5 (>60) Est GFR (Non-Af Amer) 59.5 (>60) BUN/Creatinine Ratio 16.3 (8-20) Glucose 112 H (70-100) mg/dL Calcium 9.6 (8.6-10.3) mg/dL Magnesium 1.9 (1.9-2.7) mg/dL Total Bilirubin 1.30 H (0.2-1.0) mg/dL AST 33 (13-39) U/L ALT 22 (7-52) U/L Alkaline Phosphatase 92 (34-104) U/L Troponin I 0.00 (<0.04) ng/mL Total Protein 7.2 (6.4-8.9) g/dL Albumin 4.2 (3.2-5.2) g/dL Globulin 3.0 (2-4) g/dL Albumin/Globulin Ratio 1.4 (1-3) TSH 1.88 (0.34-5.60) mcIU/mL Microbiology and Other Data: Microbiology 05/07/17 22:48 Nasal Screen MRSA (PCR)(OFELIA) - Final Nasal Mrsa Not Detected Assess/Plan/Problems-Billing Assessment: 77 yo female with history of dementia and afib admitted after a fall and found to have a UTI - Patient Problems (1) Atrial fibrillation Current Visit: Yes Status: Acute Code(s): I48.91 - UNSPECIFIED ATRIAL FIBRILLATION SNOMED Code(s): 66255990 Comment: warfarin stopped due to frequent falls, facial hemorrhage. I discussed the risk of strokes with her son, and he agrees to this risk given her three falls in the past month. Adequate rate control on metoprolol XL 12.5mg daily. (2) UTI (urinary tract infection) Current Visit: Yes Status: Acute Comment: culture growing pansensitive e. coli dc ceftriaxone and start amox/clav today; day 3 of 7 (3) Dementia Current Visit: No Status: Acute Code(s): F03.90 - UNSPECIFIED DEMENTIA WITHOUT BEHAVIORAL DISTURBANCE SNOMED Code(s): 83363988 Comment: No behavior disturbance seen here. sertraline has been discontinued , last dose 05/08, due to family's concern that falls were related to sertraline. (4) HTN (hypertension) Current Visit: No Status: Acute Code(s): I10 - ESSENTIAL (PRIMARY) HYPERTENSION SNOMED Code(s): 16980705 Comment: Normotensive on metoprolol only. Status and Disposition: awaiting transfer to [facility]
[2017-05-10] MEDS: Atorvastatin* 40 MG TAB PO SCH (20:40)
[2017-05-10] MEDS: Amoxicillin/Clavulanate TAB* 875 MG PO SCH (20:40)
[2017-05-11] MEDS: Acetaminophen TAB* 325 MG PO PRN
[2017-05-11 08:17] VITALS: BP 125/87
[2017-05-11] MEDS: Metoprolol Succinate XL TAB* 25 MG PO SCH (09:39)
[2017-05-11] MEDS: Amoxicillin/Clavulanate TAB* 875 MG PO SCH (09:39)
[2017-05-11] MEDS: Omeprazole CAP* 20 MG PO SCH (09:39)
[2017-05-11] MEDS: Nystatin TOP POWDER* 15 GM BTL TOPICAL SCH (10:36)
--- NOTE | 2017-05-11 13:32 | DS ---
CC: Millie Martinez NP * DATE OF ADMISSION: 05/07/2017. DATE OF DISCHARGE: 05/11/2017. PRINCIPAL DISCHARGE DIAGNOSES: 1. Fall. 2. UTI. SECONDARY DISCHARGE DIAGNOSES: 1. Advanced dementia. 2. Atrial fibrillation. 3. GERD. 4. Hyperlipidemia. 5. Hypertension. 6. Seasonal allergies. MEDICATIONS ON DISCHARGE: 1. Albuterol HFA two puffs q.4 prn wheezing. 2. Albuterol nebulizer 2.5 mg inhaled q.4 prn wheezing. 3. Tessalon 100 mg p.o. t.i.d. prn cough. 4. Zyrtec 10 mg daily. 5. Loperamide 2 mg daily prn diarrhea. 6. Atorvastatin 40 mg at bedtime. 7. Prilosec 20 mg daily. 8. Metoprolol Succinate 12.5 mg daily. 9. Losartan 25 mg daily. 10. Align 4 mg daily. 11. Tylenol 500 mg q.i.d. prn pain. 12. Diphenhydramine 25 mg q.6 prn allergies. 13. Lasix 20 mg daily. 14. KCL 40 mEq daily. 15. Amoxicillin Clavulanate 875 mg b.i.d. for 2 more days. Medications discontinued on this admission: 1. Sertraline. 2. Warfarin. HOSPITAL COURSE BY PROBLEM: 1. Falls: She was brought to the emergency department from [facility] where she was reported to have fallen three times in one day. She had recently been seen in the emergency department a week prior, also for falls, and her family says that over the past month or two she had had ongoing falls and her dementia seems to be advancing. Her fall was complicated by extensive facial hemorrhage, but a trauma work-up at admission was negative. She was also found to have a urinary tract infection which may have contributed to her more frequent falls over the day leading up to admission; however, of note she did not have a UTI on her urinalysis one week prior to admission, so it is believed that she does have ongoing dementia that was contributing to her falls and not just the UTI that was responsible. Based on these findings, anticoagulation was discussed with Ms. Mota's family and they agreed with discontinuing Warfarin given her frequent falls, both in the setting of a UTI and without a UTI in the month leading up to her admission. 2. UTI: Her urinalysis was positive for E. coli. It was pansensitive to antibiotics. She has received five days of antibiotics in the hospital and should be treated with two more days of Amoxicillin Clavulanate for complicated UTI. 3. Atrial fibrillation: As mentioned above, after discussion with her son, it was decided to discontinue her anticoagulation in the setting of frequent falls recently. She is continued on Metoprolol and has been rate controlled on this dose throughout her admission. 4. Dementia: It has become too advanced for her to return to [facility], so [facility]. At the time of discharge, she has reportedly returned to her baseline per her family. 5. Depression: She had recently been taking Sertraline; however, this was discontinued during this admission after decreasing the dose slowly in case it has been contributing to falls as well. 6. Code status: DNR/DNI. 7. Disposition: [facility]. ADDENDUM TO DISCHARGE SUMMARY DATE OF ADMISSION: 05/07/2017. DATE OF DISCHARGE: 05/11/2017. MEDICATION CHANGE: The initial discharge summary included potassium supplementation; however, she has not been taking this and has had a normal potassium, so this should not be continued at the time of discharge. PHYSICAL EXAMINATION: General: Alert, well-appearing female, walking the hallways in no distress. She is oriented to self only. Vital Signs: Temperature 98.5, heart rate 103, blood pressure 125/87, pulse ox 99 percent on room air. HEENT: Diffuse facial ecchymoses. No conjunctival injection or hemorrhage. Pupils equal, round, and reactive to light. Neck: No cervical lymphadenopathy. No JVP. Chest: Irregularly irregular rhythm. No murmurs. PMI: Nondisplaced. Lungs: Clear bilaterally. Abdomen: Soft, nontender, nondistended. No guarding or rebound. Extremities: No ecchymoses, no edema, no rashes or ulcers. [id number]/[facility] #: [id number]/CPS #: [id number] [facility]
--- NOTE | 2017-05-11 13:32 | DS ---
ADDENDUM TO DISCHARGE SUMMARY DATE OF ADMISSION: 05/07/2017. DATE OF DISCHARGE: 05/11/2017. MEDICATION CHANGE: The initial discharge summary included potassium supplementation; however, she sequeira s not been taking this and has had a normal potassium, so this should not be continued at the time of discharge. PHYSICAL EXAMINATION: General: Alert, well-appearing female, walking the hallways in no distress. S he is oriented to self only. Vital Signs: Temperature 98.5, heart rate 103, blood pressure 125/87, pulse ox 99 percent on room air. HEENT: Diffuse facial ecchymoses. No conjunctival injection or he morrhage. Pupils equal, round, and reactive to light. Neck: No cervical lymphadenopathy. No JVP. Chest: Irregularly irregular rhythm. No murmurs. PMI: Nondisplaced. Lungs: Clear bilaterally. Abdomen: Soft, nontender, nondistended. No guarding or rebound. Extremities: No ecchymoses, no lucita ma, no rashes or ulcers. [id number]/[facility] #: [id number]
== END 2017-05-11 13:05 | DRG 690 ==
LOC: ED 16:55 → MEDTELE 21:17
PROVIDERS: ADMIT Pediatrics; ATTEND Internal Medicine
DX: N39.0 Urinary tract infection, site not specified (principal); I48.91 Unspecified atrial fibrillation; I45.81 Long QT syndrome; G30.9 Alzheimer's disease, unspecified; F02.80 Dementia in other diseases classified elsewhere, unspecified severity, without behavioral disturbance, psychotic disturbance, mood disturbance, and anxiety; R29.6 Repeated falls; S00.83XA Contusion of other part of head, initial encounter; W19.XXXA Unspecified fall, initial encounter; Y92.092 Bedroom in other non-institutional residence as the place of occurrence of the external cause; E78.5 Hyperlipidemia, unspecified; I10 Essential (primary) hypertension; J45.909 Unspecified asthma, uncomplicated; J30.2 Other seasonal allergic rhinitis; K58.9 Irritable bowel syndrome, unspecified; K21.9 Gastro-esophageal reflux disease without esophagitis; Z88.1 Allergy status to other antibiotic agents; Z87.891 Personal history of nicotine dependence; F32.9 Major depressive disorder, single episode, unspecified; Z66 Do not resuscitate; S00.01XA Abrasion of scalp, initial encounter; S00.211A Abrasion of right eyelid and periocular area, initial encounter; Z90.710 Acquired absence of both cervix and uterus; B96.20 Unspecified Escherichia coli [E. coli] as the cause of diseases classified elsewhere
CPT/HCPCS: 36415; 70450; 72170; 80053; 81003; 81015; 83605; 83735; 84443; 84484; 85025; 85610; 87077; 87086; 87186; 87641; 93005; 93306; 99285; A9270-GY; C8929; G8978-GP-CI; G8978-GP-CJ; G8979-GP-CI; J0696

== ENCOUNTER 2017-05-30 22:32 | Observation (INO) | payer MEDICARE ==
[2017-05-30] MEDS ORDERED: NS 0.9% 1000 ML*IV.FLUID IV ONE (22:59)
[2017-05-30] MEDS ORDERED: Levofloxacin 750 MG IVPREMIX(* 750 MG/150 ML BAG IVPB ONE (23:02)
[2017-05-30] MEDS ORDERED: Vancomycin(*) 1,000 MG in NS 0.9% 250 ML* 250 ML IVPB ONE (23:03)
[2017-05-31 00:06] LABS: ABS Basophils 0.1 10^3/ul (0-0.2); ABS Eosinophils 0.1 10^3/ul (0-0.6); ABS Monocytes 0.7 10^3/ul (0-0.8); ABS Neutrophils 7.1 10^3/ul (1.5-7.7); ABS Nucleated RBC 0 10^3/ul; Eosinophil % 0.8 % (0-6); Hematocrit 32 % (35-47); Hemoglobin 10.9 g/dl (12.0-16.0); Lymphocyte % 11.5 % (25-47); Mean Corpuscular HGB Conc 34 g/dl (31-36); Mean Corpuscular Hemoglobin 30 pg (27-31); Mean Corpuscular Volume 90 fL (80-97); Nucleated Red Blood Cells % 0; Platelet Count 301 10^3/ul (150-450); Red Blood Count 3.59 10^6/ul (4.0-5.4); Red Cell Distribution Width 16 % (10.5-15); White Blood Count 9.1 10^3/ul (3.5-10.8)
[2017-05-31 00:25] LABS: EGFR Non-African American 82.9 (>60)
[2017-05-31 00:27] LABS: INR 1.09 (0.77-1.02)
[2017-05-31 00:36] LABS: Urine Appearance Cloudy; Urine Blood Negative (Negative); Urine Color Amber; Urine Ketones Negative (Negative); Urine Protein 1+(30 mg/dL) (Negative); Urine Urobilinogen Positive (Negative)
[2017-05-31] MEDS ORDERED: Vancomycin(*) 1,000 MG BAG/ADDV IVPB ONE (00:48)
[2017-05-31] MEDS ORDERED: NS 0.9% 1000 ML* 1,000 ML IV ONE (01:16)
[2017-05-31] MEDS ORDERED: Acetaminophen TAB* 325 MG PO PRN (01:20)
[2017-05-31] MEDS ORDERED: Albuterol 2.5 MG/3 ML NEB.SOL* (0.083%) INH PRN (01:21)
[2017-05-31] MEDS ORDERED: CMCS: Melatonin (NF) 3 MG TAB PO PRN (01:26)
[2017-05-31] MEDS ORDERED: Ondansetron INJ* 2 MG/ML VIAL IV PRN (01:26)
--- NOTE | 2017-05-31 01:34 | HP ---
H&P (Free Text) History and Physical: PCP: Alicia Martinez NP Date/Time: 05/31/2017 0120 CC: lethargy HPI: Mrs Mota is a 77YO female HX AFIB, dementia, HTN, HLD, IBS who was found tachycardic, lethargic, & febrile at [facility] prompting referral to [facility] for evaluation which found a UTI and dehydration. She has advanced dementia and cannot follow conversation at baseline. She does not answer questions at this time. [facility] was not comfortable accepting her back as she needs IV ABX and they were concerned she would not keep an IV in place 2nd her baseline dementia. PMedHx AFIB dementia HTN HLD asthma IBS seasonal allergies GERD Ambulatory Orders Albuterol 2.5MG/3ML (0.083%)* [Ventolin 2.5 MG/3 ML NEB.JOSEPH*] 2.5 mg INH Q4H PRN 12/23/14 Albuterol inh POWDER (NF) [Proair Respiclick] 2 puff INH Q4HR PRN 12/23/14 Benzonatate CAP* [Tessalon 100 MG CAP*] 100 mg PO TID PRN 12/23/14 Cetirizine* [ZyrTEC 10 MG TAB*] 10 mg PO DAILY 12/23/14 Atorvastatin* [Lipitor 40 MG*] 40 mg PO BEDTIME 05/30/16 Bifidobacterium Infantis [Align] 4 mg PO DAILY 05/30/16 Loperamide CAP* [Imodium CAP*] 2 mg PO DAILY PRN 05/30/16 Losartan TAB* [Cozaar TAB*] 25 mg PO DAILY 05/30/16 Metoprolol Succinate XL TAB* [Toprol XL TAB*] 12.5 mg PO DAILY 05/30/16 Omeprazole CAP* [Prilosec CAP* 20 MG] 20 mg PO DAILY 05/30/16 Acetaminophen [Acetaminophen Extra Strength] 500 mg PO QID PRN 04/27/17 Multivit with Minerals/Lutein [A Thru Z Advanced Formula Tab] 1 tab PO DAILY 10/07 Melatonin [Melatin] 1 tab PO BEDTIME 05/31/17 Polyethylene Glycol 3350 [Miralax] 17 gm PO SEE INSTRUCTIONS 05/31/17 Risperidone [Risperdal] 0.5 mg PO BEDTIME 05/31/17 Allergies erythromycin base Allergy (Verified 05/07/17 17:17) Unknown Reaction Details SocHx: former smoker with ~20PYHX, no alcohol or recreational drugs; resides at [facility] since discharge 04/2017; DNR/I code status FamHx: unobtainable ROS: as above, otherwise reviewed and all were negative vitals: Vital Signs Temp 36.2 C 05/30/17 22:39 Pulse 41 05/31/17 00:15 Resp 24 05/30/17 22:39 BP 106/72 05/31/17 00:15 Pulse Ox 89 05/31/17 00:15 Constitutional: NAD, normally developed, well-nourished elderly female HEENM: atraumatic; sclera/conjunctiva: anicteric/clear; oropharynx: clear, tacky Neck: soft tissue: no nuchal rigidity; thyroid: normal Pulmonary: clear to auscultation bilaterally, good aeration, no accessory muscle use CV: RR/RR, normal S1S2, no carotid bruit, no jugular venous distention, 2+ B DP/ PT, no edema Abdominal: soft, non-distended, non-tender, no rebound/guarding/rigidity, normoactive bowel sounds, no hepatosplenomegaly or masses, no costovertebral angle tenderness Musculoskeletal: general: grossly intact, no tenderness w/ palpation Integumental: normal appearance and texture of exposed skin Psychiatric orientation: somnolent, arouses, but does not answer questions affect: somnolent mood: acquiescent eye contact: poor content: absent insight: poor Testing: Lab Results 05/30/17 05/30/17 05/30/17 Range/Units 23:45 23:45 23:45 WBC 9.1 (3.5-10.8) 10^3/ul RBC 3.59 L (4.0-5.4) 10^6/ul Hgb 10.9 L (12.0-16.0) g/dl Hct 32 L (35-47) % MCV 90 (80-97) fL MCH 30 (27-31) pg MCHC 34 (31-36) g/dl RDW 16 H (10.5-15) % Plt Count 301 (150-450) 10^3/ul MPV 8.0 (7.4-10.4) um3 Neut % (Auto) 78.3 (38-83) % Lymph % (Auto) 11.5 L (25-47) % Shoshone % (Auto) 8.2 H (0-7) % Eos % (Auto) 0.8 (0-6) % Baso % (Auto) 1.2 (0-2) % Absolute Neuts (auto) 7.1 (1.5-7.7) 10^3/ul Absolute Lymphs (auto) 1.0 (1.0-4.8) 10^3/ul Absolute Monos (auto) 0.7 (0-0.8) 10^3/ul Absolute Eos (auto) 0.1 (0-0.6) 10^3/ul Absolute Basos (auto) 0.1 (0-0.2) 10^3/ul Absolute Nucleated RBC 0 10^3/ul Nucleated RBC % 0 INR (Anticoag Therapy) 1.09 H (0.77-1.02) APTT 27.6 (26.0-36.3) seconds Sodium 143 (139-145) mmol/L Potassium 3.5 (3.5-5.0) mmol/L Chloride 106 (101-111) mmol/L Carbon Dioxide 28 (22-32) mmol/L Anion Gap 9 (2-11) mmol/L BUN 34 H (6-24) mg/dL Creatinine 0.69 (0.51-0.95) mg/dL Est GFR ( Amer) 106.7 (>60) Est GFR (Non-Af Amer) 82.9 (>60) BUN/Creatinine Ratio 49.3 H (8-20) Glucose 104 H (70-100) mg/dL Lactic Acid (0.5-2.0) mmol/L Calcium 9.2 (8.6-10.3) mg/dL Total Bilirubin 1.30 H (0.2-1.0) mg/dL AST 26 (13-39) U/L ALT 24 (7-52) U/L Alkaline Phosphatase 104 (34-104) U/L Troponin I 0.04 H* (<0.04) ng/mL C-Reactive Protein 59.60 H (< 5.00) mg/L B-Natriuretic Peptide ( - 100) pg/mL Total Protein 6.8 (6.4-8.9) g/dL Albumin 3.7 (3.2-5.2) g/dL Globulin 3.1 (2-4) g/dL Albumin/Globulin Ratio 1.2 (1-3) Urine Color Urine Appearance Urine pH (5-9) Ur Specific Holland (1.010-1.030) Urine Protein (Negative) Urine Ketones (Negative) Urine Blood (Negative) Urine Nitrate (Negative) Urine Bilirubin (Negative) Urine Urobilinogen (Negative) Ur Leukocyte Esterase (Negative) Urine WBC (Auto) (Absent) Urine RBC (Auto) (Absent) Ur Squamous Epith Cells (Absent) Urine Bacteria (Absent) Urine Glucose (Negative) Urine Ascorbic Acid (Negative) 05/30/17 05/30/17 05/31/17 Range/Units 23:45 23:45 00:03 WBC (3.5-10.8) 10^3/ul RBC (4.0-5.4) 10^6/ul Hgb (12.0-16.0) g/dl Hct (35-47) % MCV (80-97) fL MCH (27-31) pg MCHC (31-36) g/dl RDW (10.5-15) % Plt Count (150-450) 10^3/ul MPV (7.4-10.4) um3 Neut % (Auto) (38-83) % Lymph % (Auto) (25-47) % Shoshone % (Auto) (0-7) % Eos % (Auto) (0-6) % Baso % (Auto) (0-2) % Absolute Neuts (auto) (1.5-7.7) 10^3/ul Absolute Lymphs (auto) (1.0-4.8) 10^3/ul Absolute Monos (auto) (0-0.8) 10^3/ul Absolute Eos (auto) (0-0.6) 10^3/ul Absolute Basos (auto) (0-0.2) 10^3/ul Absolute Nucleated RBC 10^3/ul Nucleated RBC % INR (Anticoag Therapy) (0.77-1.02) APTT (26.0-36.3) seconds Sodium (139-145) mmol/L Potassium (3.5-5.0) mmol/L Chloride (101-111) mmol/L Carbon Dioxide (22-32) mmol/L Anion Gap (2-11) mmol/L BUN (6-24) mg/dL Creatinine (0.51-0.95) mg/dL Est GFR ( Amer) (>60) Est GFR (Non-Af Amer) (>60) BUN/Creatinine Ratio (8-20) Glucose (70-100) mg/dL Lactic Acid 1.1 (0.5-2.0) mmol/L Calcium (8.6-10.3) mg/dL Total Bilirubin (0.2-1.0) mg/dL AST (13-39) U/L ALT (7-52) U/L Alkaline Phosphatase (34-104) U/L Troponin I (<0.04) ng/mL C-Reactive Protein (< 5.00) mg/L B-Natriuretic Peptide 530 H ( - 100) pg/mL Total Protein (6.4-8.9) g/dL Albumin (3.2-5.2) g/dL Globulin (2-4) g/dL Albumin/Globulin Ratio (1-3) Urine Color Hannah Urine Appearance Cloudy Urine pH 5.0 (5-9) Ur Specific Holland 1.020 (1.010-1.030) Urine Protein 1+(30 mg/dl) A (Negative) Urine Ketones Negative (Negative) Urine Blood Negative (Negative) Urine Nitrate Positive A (Negative) Urine Bilirubin Negative (Negative) Urine Urobilinogen Positive A (Negative) Ur Leukocyte Esterase Trace A (Negative) Urine WBC (Auto) 2+(11-20/hpf) A (Absent) Urine RBC (Auto) Trace(0-2/hpf) (Absent) Ur Squamous Epith Cells Present A (Absent) Urine Bacteria 3+ A (Absent) Urine Glucose Negative (Negative) Urine Ascorbic Acid * A (Negative) ECG, personally reviewed: AFIB rate 108, no ischemia CXR, personally reviewed: cardiomegaly, no acute process Impression: 77F HX dementia, HTN, HLD, asthma who presents with SIRS (fever, tachycardia) 2nd UTI & dehydration DIAGNOSIS & PLAN Primary SIRS 2nd UTI : IV levofloxacin : IVFs : trend labs : blood & urine CXs : supportive care AFIB : currently rate controlled : telemetry Secondary dementia : continue risperidone HTN : continue losartan & metroprolol HLD : continue atorvastatin asthma : continue albuterol GERD : continue omeprazole Admission Rational: observation for initiation of ABX & IVFs for UTI & dehydration DVTp: heparin SQ & SCDs Code Status: DNR/I HCP: son
[2017-05-31] MEDS: NS 0.9% 1000 ML* 1,000 ML IV SCH ×2 (03:24→17:04)
--- NOTE | 2017-05-31 04:46 | ED ---
Prabhu Mckenzie Abhishek, scribed for Kayla Wilson MD on 05/30/17 at 2311 . Complex/Multi-Sys Presentation - HPI Summary HPI Summary: LEVEL 5 CAVEAT The pt is a 77 y/o female that is brought from the long term via ambulance due to a chief complaint of lethargy and possible UTI. The HPI was unable to be reported by pt due to the pt's hx of dementia. The pt is alert and orientated to her name and is unable to answer any other questions and commands. The patient is unable to rate the pain. Symptoms aggravated by nothing. Symptoms alleviated by nothing. Pt has pertinent PMHx of Alzheimer's disease. - History Of Current Complaint Chief Complaint: EDUrogenitalProblems Time Seen by Provider: 05/30/17 22:44 Hx Obtained From: EMS Hx From Patient Unobtainable Due To: Dementia Aggravating Factor(s): nothing Alleviating Factor(s): nothing Associated Signs And Symptoms: Positive: Other - Lethargy - Allergies/Home Medications Allergies/Adverse Reactions: Allergies Allergy/AdvReac Type Severity Reaction Status Date / Time erythromycin base Allergy Unknown Verified 05/07/17 17:17 Reaction Details PMH/Surg Hx/FS Hx/Imm Hx Endocrine/Hematology History: Reports: Hx Anticoagulant Therapy Denies: Hx Diabetes, Hx Thyroid Disease Comment Only: Other Endocrine/Hematological Disorders - Anemia Cardiovascular History: Reports: Hx Hypertension, Hx Valvular Heart Disease - Aorta valve replacement Denies: Hx Atrial Fibrillation, Hx Congestive Heart Failure Respiratory History: Reports: Hx Chronic Bronchitis Denies: Hx Asthma, Hx Chronic Obstructive Pulmonary Disease (COPD) GI History: Reports: Hx Irritable Bowel Denies: Hx Ulcer History: Denies: Hx Dialysis, Hx Renal Disease Musculoskeletal History: Reports: Hx Osteoporosis Sensory History: Reports: Hx Contacts or Glasses, Hx Hearing Problem Denies: Hx Eye Injury, Hx Eye Prosthesis, Hx Glaucoma, Hx Legally Blind, Hx Macular Degeneration, Hx Vision Problem, Hx Hearing Aid Opthamlomology History: Reports: Hx Contacts or Glasses Denies: Hx Eye Injury, Hx Eye Prosthesis, Hx Glaucoma, Hx Legally Blind, Hx Macular Degeneration, Hx Vision Problem Neurological History: Reports: Hx Dementia, Other Neuro Impairments/Disorders - Alzheimer's Psychiatric History: Reports: Hx Anxiety, Hx Panic Disorder - Cancer History Hx Hematologic Symptoms: No Hx Chemotherapy: No Hx Radiation Therapy: No - Surgical History Surgery Procedure, Year, and Place: appy, hysterectomy Hx Anesthesia Reactions: No Infectious Disease History: No Infectious Disease History: Reports: Hx of Known/Suspected MRSA Denies: Hx Clostridium Difficile, Hx Hepatitis, Hx Human Immunodeficiency Virus (HIV), Hx Shingles, Hx Tuberculosis, Hx Known/Suspected VRE, Traveled Outside the [place] in Last 30 Days - Family History Known Family History: Positive: Unknown - due to level 5 caveat - pt has Alzheimer's - Social History Alcohol Use: None Substance Use Type: Reports: None Smoking Status (MU): Former Smoker Review of Systems - ROS Summary Review of Systems Summary: LEVEL 5 CAVEAT Positive: Fatigue - Lethargy Eyes: Negative ENT: Negative Cardiovascular: Negative Respiratory: Negative Gastrointestinal: Negative Genitourinary: Negative Musculoskeletal: Negative Skin: Negative Neurological: Other - Dementia Psychological: Normal All Other Systems Reviewed And Are Negative: Yes Physical Exam - Summary Physical Exam Summary: LEVEL 5 CAVEAT VITAL SIGNS: Reviewed. GENERAL: ~Patient is a (FEMALE) who is lying comfortable in the stretcher. Patient is not in any acute respiratory distress. HEAD AND FACE: No signs of trauma. No ecchymosis, hematomas or skull depressions. No sinus tenderness. EYES: PERRLA, EOMI x 2, No injected conjunctiva, no nystagmus. EARS: Hearing grossly intact. Ear canals and tympanic membranes are within normal limits. MOUTH: Oropharynx within normal limits. NECK: Supple, trachea is midline, no adenopathy, no JVD, no carotid bruit, no c- spine tenderness, neck with full ROM. CHEST: Symmetric, no tenderness at palpation LUNGS: Clear to auscultation bilaterally. No wheezing or crackles. CVS: Regular rate and rhythm, S1 and S2 present, no murmurs or gallops appreciated. ABDOMEN: Belly is distended. EXTREMITIES: FROM in all major joints, no edema, no cyanosis or clubbing. NEURO: Alert and oriented only to her name. Mild dysarthria that is old SKIN: Dry and warm Triage Information Reviewed: Yes Vital Signs On Initial Exam: Initial Vitals Temp Pulse Resp BP Pulse Ox 97.1 F 102 24 109/85 95 05/30/17 22:39 05/30/17 22:39 05/30/17 22:39 05/30/17 22:39 05/30/17 22:39 Vital Signs Reviewed: Yes Diagnostics - Vital Signs Vital Signs Temp Pulse Resp BP Pulse Ox 05/30/17 22:39 97.1 F 102 24 109/85 95 - Laboratory Result Diagrams: 05/30/17 23:45 05/30/17 23:45 Lab Statement: Any lab studies that have been ordered have been reviewed, and results considered in the medical decision making process. - Radiology Chest X-ray Radiology Interpretation Completed By: ED Physician - CXR as per ED physician receals no acute processes. - EKG 0006 EKG Rhythm: Atrial Fibrillation - 108 bpm EKG Interpretation: An EKG at 0006 reveals non-specific ST wave changes. Complex Multi-Symp Course/Dx Course Of Treatment: LEVEL 5 CAVEAT. The pt is a 77 y/o female presenting to the [facility] with a chief complaint of lethargy as per EMS report. We were unable to receive an HPI from the pt due to the pt's hx of dementia. According to EMS report, pt is here to also rule out possible UTI. Pt received lab work and blood work in the [facility] as well as an EKG and chest X-ray. The pt will be dx with dehydratin and UTI. We discussed pt care with Dr. Myers and he accepts pt for admission to the [facility]. - Diagnoses Provider Diagnoses: Dehydration, UTI (urinary tract infection) - Physician Notifications Discussed Care Of Patient With: Pasha Myers Time Discussed With Above Provider: 01:00 Instructed by Provider To: Admit As Observation Discharge - Sign-Out/Discharge Documenting (check all that apply): Discharge - Admitted to the [facility] to Dr. Myers - Discharge Plan Condition: Stable Disposition: ADMITTED TO [facility] Discharge Disposition Comment: Dr. Myers accepts pt care Referrals: Millie Martinez NP [Primary Care Provider] - The documentation as recorded by the Prabhu thompson Abhishek accurately reflects the service I personally performed and the decisions made by me, Kayla Wilson MD.
[2017-05-31] MEDS: Omeprazole CAP* 20 MG PO SCH (04:55)
[2017-05-31 06:07] LABS: ABS Basophils 0.1 10^3/ul (0-0.2); ABS Eosinophils 0.1 10^3/ul (0-0.6); ABS Lymphocytes 0.7 10^3/ul (1.0-4.8); ABS Monocytes 0.7 10^3/ul (0-0.8); ABS Neutrophils 6.1 10^3/ul (1.5-7.7); ABS Nucleated RBC 0 10^3/ul; Eosinophil % 1.7 % (0-6); Hematocrit 31 % (35-47); Hemoglobin 10.2 g/dl (12.0-16.0); Lymphocyte % 9.5 % (25-47); Mean Corpuscular HGB Conc 33 g/dl (31-36); Mean Corpuscular Hemoglobin 30 pg (27-31); Mean Corpuscular Volume 91 fL (80-97); Nucleated Red Blood Cells % 0.1; Platelet Count 253 10^3/ul (150-450); Red Blood Count 3.37 10^6/ul (4.0-5.4); Red Cell Distribution Width 15 % (10.5-15); White Blood Count 7.6 10^3/ul (3.5-10.8)
[2017-05-31 06:23] LABS: EGFR Non-African American 97.5 (>60)
--- NOTE | 2017-05-31 07:35 | RAD ---
INDICATION: Short of breath COMPARISON: April 27, 2017 TECHNIQUE: An AP portable view obtained at 2305 hours is submitted. FINDINGS: Bones/Soft Tissues: There are no acute bony findings. Cardiomediastinal: The cardiomediastinal silhouette is mildly prominent. Lungs: There are no acute infiltrates. There are mild chronic interstitial changes. Pleura: There are no pleural effusions. Other: None IMPRESSION: NO ACTIVE DISEASE.
[2017-05-31] MEDS ORDERED: Omeprazole CAP* 20 MG PO SCH (09:00)
[2017-05-31] MEDS: Metoprolol Succinate XL TAB* 25 MG PO SCH (09:20)
[2017-05-31] MEDS: Losartan TAB* 25 MG PO SCH (09:20)
--- NOTE | 2017-05-31 12:02 | PN ---
Hospitalist Progress Note Date of Service: 05/31/17 I have seen and examined Ms. Mota. She is well known to me from previous admission. She feels well today, is oriented x 0 but pleasant and nontoxic appearing. SHe is afebrile, tachycardic in afib, and has JVP to 10cm after 2.5L NS. My plan for today is to discontinue IVF after this current bag of NS; await urine cultures. I reviewed her old culture data, and she does not have history of resistant organisms.
[2017-05-31] MEDS: cefTRIAXone(*) 1 GM in NS 0.9% 50 ML* 50 ML IVPB SCH (14:02)
[2017-05-31] MEDS ORDERED: Atorvastatin* 40 MG TAB PO SCH (21:00)
[2017-05-31] MEDS ORDERED: Melatonin (NF) ** ENTER STRENGTH IN LABEL DIRECTIONS PO SCH (21:00)
[2017-05-31] MEDS ORDERED: Levofloxacin 750 MG IVPREMIX(* 750 MG/150 ML BAG IVPB SCH (23:00)
[2017-06-01] MEDS: Heparin VIAL(*) 5000 UNITS/ML VIAL (FIVE THOUSAND) SUBCUT SCH ×2 (05:12→14:02)
[2017-06-01] MEDS: Omeprazole CAP* 20 MG PO SCH (05:12)
[2017-06-01] MEDS: NS 0.9% 1000 ML* 1,000 ML IV SCH (05:12)
[2017-06-01 07:49] VITALS: BP 144/78
[2017-06-01] MEDS: Metoprolol Succinate XL TAB* 25 MG PO SCH (11:08)
[2017-06-01] MEDS: Losartan TAB* 25 MG PO SCH (11:09)
[2017-06-01] MEDS: cefTRIAXone(*) 1 GM in NS 0.9% 50 ML* 50 ML IVPB SCH (12:07)
[2017-06-01 12:53] LABS: EGFR Non-African American 95.6 (>60)
[2017-06-01] MEDS ORDERED: Potassium Chloride LIQUID* 20 MEQ PACKET PO ONE (13:29)
--- NOTE | 2017-06-01 16:02 | DS ---
DATE OF ADMISSION: 05/31/2017. DATE OF DISCHARGE: 06/01/2017. PRINCIPAL DISCHARGE DIAGNOSIS: Complicated UTI. SECONDARY DISCHARGE DIAGNOSES: 1. Dementia. 2. Atrial fibrillation. 3. Hypertension and hyperlipidemia. 4. Asthma. 5. GERD. DISCHARGE MEDICATIONS: 1. Albuterol inhaled q.4 prn shortness of breath. 2. Albuterol 2.5 mg/3 ml nebulized solution inhaled q.4 hour prn wheezing. 3. Tessalon Perles 100 mg t.i.d. prn cough. 4. Cetirizine 10 mg daily. 5. Imodium 2 mg daily prn diarrhea. 6. Atorvastatin 40 mg p.o. at bedtime. 7. Omeprazole 20 mg daily. 8. Metoprolol XL 12.5 mg daily. 9. Losartan 25 mg daily. 10. Align 4 mg daily. 11. Tylenol 500 mg q.i.d. prn pain. 12. Multivitamin daily. 13. Risperidone 0.5 mg at bedtime. 14. MiraLax 17 gm daily prn constipation. 15. Melatonin 3 mg at bedtime. 16. TMP/SMX double strength b.i.d. for 5 more days. PHYSICAL EXAMINATION AT THE TIME OF DISCHARGE: General: Alert, well-appearing female, sitting in the chair in no distress. She is talkative, but speaks non- sensibly, but is very pleasant and follows simple commands. Vital Signs: Temperature 97.3, heart rate 95, respirations 20, pulse ox 95 percent on room air, blood pressure 144/78. HEENT: Pupils are equal, round, and reactive to light. She has no pharyngeal exudates or erythema. Neck: No cervical or supraclavicular lymphadenopathy. No JVP. Chest: Irregularly irregular rhythm. No murmurs. Lungs: Clear bilaterally. Abdomen: Soft, nontender, nondistended with no guarding. Legs: No edema. Neurologic: Strength 5+ throughout. Sensation is intact. Her gait is normal. She has oriented only to person. HOSPITAL COURSE BY PROBLEM: 1. Complicated UTI: [facility]y and fever , and was found to have a positive UA in the emergency department. She was started on IV Ceftriaxone here and improved dramatically and by the second day of admission was at her baseline mental status which is pleasantly confused, but very interactive. She is able to feed herself, but cannot really make her needs known. Her urine culture at the time of discharge shows E. coli. The sensitivities have not returned yet; however, her last urine culture was also E. coli that was sensitive to everything, so I am discharging her on five more days of Bactrim. She should have a BMP checked on Monday since she is also on an ARB to be sure her potassium is okay. I will follow-up on the final sensitivities of the E. coli tomorrow. 2. Atrial fibrillation: She is not on any anticoagulation due to a recent fall. She was rate controlled on her home regimen of Metoprolol XL 12.5 mg daily. 3. Dementia: She had no behavioral disturbances, but did require close supervision. She was continued on Risperidone at bedtime. DISPOSITION: Ms. Mota [facility]. Her son and [id number] are here to transport her. FOLLOW-UP NEEDED: Please check a BMP for potassium on Monday since she is on Bactrim and an ARB. Please contact me at any time with questions or concerns about this discharge. My cell phone is [phone]. [id number]/[facility] #: [id number] MTDRain
== END 2017-06-01 16:03 ==
LOC: ED 22:32 → MEDTELE 05-31 01:18
PROVIDERS: ADMIT Hospitalist; ATTEND Internal Medicine
DX: N39.0 Urinary tract infection, site not specified (principal); F03.90 Unspecified dementia, unspecified severity, without behavioral disturbance, psychotic disturbance, mood disturbance, and anxiety; I48.91 Unspecified atrial fibrillation; I10 Essential (primary) hypertension; E78.5 Hyperlipidemia, unspecified; J45.909 Unspecified asthma, uncomplicated; K21.9 Gastro-esophageal reflux disease without esophagitis; R53.83 Other fatigue; Z79.01 Long term (current) use of anticoagulants; Z87.891 Personal history of nicotine dependence; E86.0 Dehydration; R06.02 Shortness of breath; Z95.2 Presence of prosthetic heart valve
CPT/HCPCS: 36415; 71045; 80048; 80053; 81003; 81015; 83605; 83880; 84484; 85025; 85610; 85730; 86140; 87040; 87077; 87086; 87186; 93005; 99284; A9270-GY; G0378; J0696; J1644; J3370